=== PATIENT | female | born 1950 | race Caucasian/White ===

== ENCOUNTER → 2016-09-11 | Outpatient (CLI) | payer MEDICARE, OTHER ==
[~2016-09-11] MED LIST: ALPR.25T; ATR20T; CTLP20T; DIOVAN; NF-LEVTH75; NF-VAL40T; TRZ50T
[2016-09-11 11:08] LABS: BASOPHILS % (AUTO) 0 % (0-10); EOSINOPHILS % (AUTO) 0 % (0-10); LYMPHOCYTES # (AUTO) 1.1 X 10^3 (1.0-4.0); LYMPHOCYTES % (AUTO) 16 % (12-44); MEAN CORPUSCULAR HEMOGLOBIN 29 PG (25-34); MEAN CORPUSCULAR HGB CONC 35 G/DL (32-36); MEAN CORPUSCULAR VOLUME 83 FL (80-99); MEAN PLATELET VOLUME 8.9 FL (7.4-10.4); MONOCYTES # (AUTO) 0.5 X 10^3 (0.0-1.0); MONOCYTES % (AUTO) 7 % (0-12); NEUTROPHILS # (AUTO) 5.3 X 10^3 (1.8-7.8); NEUTROPHILS % (AUTO) 78 % (42-75); PLATELET COUNT 296 10^3/uL (130-400); RED BLOOD COUNT 5.03 10^6/uL (4.35-5.85); RED CELL DISTRIBUTION WIDTH 13.8 % (10.0-14.5); WHITE BLOOD COUNT 6.9 10^3/uL (4.3-11.0)
[2016-09-11 11:38] LABS: ALANINE AMINOTRANSFERASE 34 U/L (0-55); ALBUMIN 4.5 G/DL (3.2-4.5); ANION GAP 10 MMOL/L (5-14); ASPARTATE AMINO TRANSFERASE 28 U/L (5-34); BILIRUBIN,TOTAL 0.3 MG/DL (0.1-1.0); BLOOD UREA NITROGEN 5 MG/DL (7-18); BUN/CREATININE RATIO 8; CALCIUM 9.2 MG/DL (8.5-10.1); CARBON DIOXIDE 26 MMOL/L (21-32); CHLORIDE 95 MMOL/L (98-107); CREATININE SERUM 0.65 MG/DL (0.60-1.30); GFR ESTIMATED > 60; GLUCOSE 101 MG/DL (70-105); POTASSIUM 3.5 MMOL/L (3.6-5.0); SODIUM 131 MMOL/L (135-145); TOTAL PROTEIN 7.3 G/DL (6.4-8.2)
[2016-09-11 11:57] LABS: THYROID STIMULATING HORMONE 0.33 UIU/ML (0.35-4.94)
== END ==
LOC: ONC 10:34
PROVIDERS: ATTEND Internal Medicine Hematology & Oncology
DX: C56.2 Malignant neoplasm of left ovary (principal); C43.62 Malignant melanoma of left upper limb, including shoulder; E03.9 Hypothyroidism, unspecified; I10 Essential (primary) hypertension; E78.5 Hyperlipidemia, unspecified; Z79.899 Other long term (current) drug therapy
CPT/HCPCS: 36415; 80053; 84443; 85025; 86304; 99213

== ENCOUNTER → 2017-03-06 | Outpatient (CLI) | payer MEDICARE, OTHER ==
[2017-03-06] VITALS (11 sets, daily range): BP systolic 110–167; BP diastolic 48–76
[~2017-03-06] VITALS: Ht 160 cm; Wt 64.4 kg
[~2017-03-06] MED LIST changes: +HYDROcodone/APAP 5 MG/325 MG (LORTAB) TAB PO PRN; +LIDOCAINE 1% INJ 20 ML (XYLOCAINE) VIAL INJ ONE; +fentaNYL INJECTION 100 MCG/2 ML AMP IVP PRN
[2017-03-06 08:14] LABS: MEAN PLATELET VOLUME 9.6 FL (7.4-10.4); RED BLOOD COUNT 5.02 10^6/uL (4.35-5.85); RED CELL DISTRIBUTION WIDTH 13.3 % (10.0-14.5); WHITE BLOOD COUNT 7.9 10^3/uL (4.3-11.0)
[2017-03-06 08:26] LABS: PROTHROMBIN TIME PATIENT 13.1 SEC (12.2-14.7)
--- NOTE | 2017-03-06 09:57 | Pre-Op Note & Conscious Sedat ---
Pre-Operative Progress Note H&P Reviewed The H&P was reviewed, patient examined and no changes noted. Date H&P Reviewed: Mar 06, 2017 Time H&P Reviewed: 08:30 Pre-Op Diagnosis: left kidney mass Conscious Sedation Pre-Proced Time Reviewed: 08:30 ASA Class: 2 Airway Mallampati Classification: ([place] appropriate class) I. II. III, IV Lungs Heart ASA score ASA 1: a normal healthy patient ASA 2: a patient with a mild systemic disease (mid diabetes, controlled hypertension, obesity ASA 3: a patient with a severe systemic disease that limits activity (angina , COPD, prior Myocardial infarction) ASA 4: a patient with an incapacitating disease that is a constant threat to life (CHF, renal failure) ASA 5: a moribund patient not expected to survive 24 hrs. (ruptured aneurysm) ASA 6: a declared brain patient whose organs are being harvested. For emergent operations, add the letter E after the classification Grade 3 Sedation Plan: Analgesia Note The patient is an appropriate candidate to undergo the planned procedure, sedation, and anesthesia. The patient immediately re-assessed prior to indication. LESLIE REICH MD Mar 06, 2017 09:57
--- NOTE | 2017-03-06 11:31 | Diagnostic Imaging Report ---
EXAMINATION: US-guided core biopsy-kidney. INDICATION: Left adrenal mass. Current history and physical and other medical records are reviewed prior to the procedure. CONSENT: Informed consent was obtained from the patient. The risks, benefits, potential complications and alternatives were reviewed and all questions answered to the patient's satisfaction. The patient's vital signs, cardiac rhythm, and pulse oximetry with observed throughout the procedure by qualified nursing personnel. Sedation/medications: none. FINDINGS: Left renal mass. PROCEDURE: After maximal sterile barrier technique preparation and draping, 1% lidocaine was utilized for local anesthesia. With the patient in prone position, and via posterior subcostal approach, a 17-gauge guide needle is introduced into the upper left renal mass under live ultrasound guidance. After confirming adequate positioning with saved ultrasound images, multiple 18 gauge core biopsy specimens were obtained. Gelfoam injected in the tract as the guide needle was removed The patient tolerated the procedure well with no immediate complications. IMPRESSION: Successful US-guided core biopsy of upper pole left renal mass. Dictated by: Dictated on workstation # [id number]
--- NOTE | 2017-03-06 11:43 | Diagnostic Imaging Report ---
Expiratory view of the chest. Indication upper pole kidney mass biopsy close to the lower lungs. Findings: The lungs demonstrate interstitial prominence which may relate to minimal vascular congestion and background chronic interstitial thickening. The heart size is enlarged. No focal infiltrate. No effusion or pneumothorax The mediastinum and nikia appear unremarkable. Impression: Cardiomegaly with minimal vascular congestion. No pneumothorax. Dictated by: Dictated on workstation # [id number]
== END ==
LOC: RAD 06:56
PROVIDERS: ATTEND Urology
DX: N28.89 Other specified disorders of kidney and ureter (principal); I51.7 Cardiomegaly
CPT/HCPCS: 36415; 71035; 76942; 85027; 85610; 85730

== ENCOUNTER → 2017-08-28 | Outpatient (CLI) | payer MEDICARE, OTHER ==
[~2017-08-28] MED LIST changes: -HYDROcodone/APAP 5 MG/325 MG (LORTAB) TAB PO PRN; -LIDOCAINE 1% INJ 20 ML (XYLOCAINE) VIAL INJ ONE; -fentaNYL INJECTION 100 MCG/2 ML AMP IVP PRN
--- NOTE | 2017-08-28 19:08 | Diagnostic Imaging Report ---
INDICATION: Digital mammogram bilateral screening. This study was compared to the prior exams of 09/06/15, 09/02/14 and 09/15/13. At this time, there are no current complaints. The current study was also evaluated with a Computer Aided Detection (CAD) system. FINDINGS: The fibroglandular tissue in both breasts is heterogeneously dense. This does limit the sensitivity of this exam. Overall, there does not appear to have been any significant change when compared to the prior study. No primary or secondary sign of malignancy is noted. IMPRESSION: There is no radiographic evidence for malignancy. ACR BI-RADS Category 1: Negative. Result letter will be mailed to the patient. Note: At least 10% of breast cancer is not imaged by mammography. Dictated by: Dictated on workstation # [id number]
== END ==
LOC: RAD 12:46
PROVIDERS: ATTEND Internal Medicine Hematology & Oncology
DX: Z12.31 Encounter for screening mammogram for malignant neoplasm of breast (principal)
CPT/HCPCS: 77067

== ENCOUNTER 2017-09-10 10:50 | Outpatient (RCR) | payer MEDICARE, OTHER ==
[2017-09-10 11:00] LABS: BASOPHILS % (AUTO) 0 % (0-10); EOSINOPHILS # (AUTO) 0.1 10^3/uL (0.0-0.3); EOSINOPHILS % (AUTO) 1 % (0-10); HEMATOCRIT 38 % (35-52); HEMOGLOBIN 13.3 G/DL (11.5-16.0); LYMPHOCYTES # (AUTO) 1.2 X 10^3 (1.0-4.0); LYMPHOCYTES % (AUTO) 13 % (12-44); MEAN CORPUSCULAR HEMOGLOBIN 30 PG (25-34); MEAN CORPUSCULAR HGB CONC 35 G/DL (32-36); MEAN CORPUSCULAR VOLUME 86 FL (80-99); MEAN PLATELET VOLUME 8.3 FL (7.4-10.4); MONOCYTES # (AUTO) 0.6 X 10^3 (0.0-1.0); MONOCYTES % (AUTO) 6 % (0-12); NEUTROPHILS # (AUTO) 7.4 X 10^3 (1.8-7.8); NEUTROPHILS % (AUTO) 80 % (42-75); PLATELET COUNT 333 10^3/uL (130-400); RED BLOOD COUNT 4.44 10^6/uL (4.35-5.85); RED CELL DISTRIBUTION WIDTH 13.3 % (10.0-14.5); WHITE BLOOD COUNT 9.3 10^3/uL (4.3-11.0)
[2017-09-10 11:21] LABS: ALANINE AMINOTRANSFERASE 23 U/L (0-55); ALBUMIN 4.7 GM/DL (3.2-4.5); ALKALINE PHOSPHATASE 104 U/L (40-136); BILIRUBIN,TOTAL 0.4 MG/DL (0.1-1.0); BUN/CREATININE RATIO 12; CALCIUM 9.2 MG/DL (8.5-10.1); CARBON DIOXIDE 29 MMOL/L (21-32); CHLORIDE 90 MMOL/L (98-107); CREATININE SERUM 0.76 MG/DL (0.60-1.30); GFR ESTIMATED > 60; GLUCOSE 89 MG/DL (70-105); POTASSIUM 3.8 MMOL/L (3.6-5.0); SODIUM 126 MMOL/L (135-145); TOTAL PROTEIN 7.4 GM/DL (6.4-8.2)
== END 2017-12-09 | disposition home or self-care (01) ==
LOC: ONC 10:50
PROVIDERS: ATTEND Internal Medicine Hematology & Oncology
DX: Z08 Encounter for follow-up examination after completed treatment for malignant neoplasm (principal); Z85.43 Personal history of malignant neoplasm of ovary; Z85.820 Personal history of malignant melanoma of skin; Z85.528 Personal history of other malignant neoplasm of kidney; I10 Essential (primary) hypertension; E03.9 Hypothyroidism, unspecified; E78.00 Pure hypercholesterolemia, unspecified; E87.1 Hypo-osmolality and hyponatremia; Z79.899 Other long term (current) drug therapy; Z90.5 Acquired absence of kidney
CPT/HCPCS: 36415; 80053; 85025; 86304; 99213

== ENCOUNTER → 2018-09-23 | Outpatient (CLI) | payer MEDICARE, OTHER | LOC: ONC 10:38 | PROVIDERS: ATTEND Internal Medicine Hematology & Oncology | DX: Z08 Encounter for follow-up examination after completed treatment for malignant neoplasm (principal); Z85.43 Personal history of malignant neoplasm of ovary; Z85.820 Personal history of malignant melanoma of skin; Z85.528 Personal history of other malignant neoplasm of kidney; I10 Essential (primary) hypertension; E03.9 Hypothyroidism, unspecified; E78.00 Pure hypercholesterolemia, unspecified; E87.1 Hypo-osmolality and hyponatremia; Z79.899 Other long term (current) drug therapy; Z90.5 Acquired absence of kidney | CPT/HCPCS: 99213 ==

== ENCOUNTER 2018-10-03 08:30 | Outpatient (CLI) | payer MEDICARE, OTHER ==
[~2018-10-03] VITALS: Ht 160 cm; Wt 72.6 kg
[~2018-10-03 08:30] MED LIST changes: +ALPR0.254 PO; +CARB200T PO; +CITA10TA7 PO; +LEVO88TA54 PO; +ROSU20TA31 PO; +TRAZ-190 PO; +VENL150C PO; +VERA120C9 PO
[2018-10-03] MEDS ORDERED: HYDR25TA4 PO (08:44)
[2018-10-03] MEDS ORDERED: ALPR2TAB PO (08:44)
== END 2018-10-03 09:20 | disposition home or self-care (01) ==
LOC: PREOP 08:30
PROVIDERS: ATTEND Specialist
DX: Z01.818 Encounter for other preprocedural examination (principal)

== ENCOUNTER 2018-10-04 08:50 | Day surgery (SDC) | payer MEDICARE, OTHER ==
[~2018-10-04] VITALS: Ht 160 cm; Wt 72.6 kg
[~2018-10-04 08:50] MED LIST changes: +ALPR2TAB PO; +HYDR25TA4 PO
[2018-10-04 09:05] VITALS: BP 176/71
[2018-10-04] MEDS: TETRACAINE 0.5% OPHTH SOLN 4 ML BTL (SINGLE DOSE ONLY) OU PRN ×4 (09:08→09:26)
[2018-10-04] MEDS: PHENYLEPHRINE 10% OPHTH (NEO-SYN) 5 ML BTL OU PRN ×3 (09:14→09:26)
[2018-10-04] MEDS: TROPICAMIDE 1% OPH SOLN (MYDRIACYL) 15 ML BTL OU PRN ×3 (09:14→09:26)
--- NOTE | 2018-10-04 09:17 | Ophthalmologist Pre-Op Note ---
Pre-Operative Progress Note H&P Reviewed The H&P was reviewed, patient examined and no changes noted. Date H&P Reviewed: Oct 04, 2018 Time H&P Reviewed: 09:17 Pre-Op Dx Secondary Cataract, Bilateral Eyes KO WEBER MD Oct 04, 2018 09:17
[2018-10-04 09:55] VITALS: BP 176/71
--- NOTE | 2018-10-04 10:13 | Ophthalmology Operative Report ---
YAG Capsulotomy PREOPERATIVE DIAGNOSIS: Secondary Cataract Bilateral POSTOPERATIVE DIAGNOSIS: Secondary Cataract Bilateral PROCEDURE: YAG Capsulotomy, Bilateral SURGEON: Darell Weber ANESTHESIA: Topical anesthesia COMPLICATIONS: None ESTIMATED BLOOD LOSS: Minimal DESCRIPTION OF PROCEDURE: After proper informed consent was obtained, the patient's, a 68 female , received one drop of Tropicamide and one drop of Tetracaine in each eye. The patient was then placed at the YAG laser and using a power of [ 3.8] millijoules and bursts [ 17] right eye and [18 ] left eye were used to fashion a central capsulotomy. The patient tolerated the procedure well without complications and the patient's pressure was [13/12] shortly after the laser. DARELL WEBER MD Oct 04, 2018 10:13
--- OUTSIDE RECORDS SUMMARY | 2018-10-04 10:31 | XMS REPORT | Clinical Summary ---
Author Author [facility] Organization [facility] Address Unknown Phone Unavailable Care Team Providers Care Wire Wheeler Name Role Phone Amber Ramon MD PCP Source Comments Some departments are not documenting in the electronic medical record. If you do not see the information that you expected, contact Release of Information in the Health Information Management department at [phone] for further assistance in locating additional records.[facility] Allergies No Known Allergies Medications End Date Status Medication Sig Dispensed Refills Start Date Active amLODIPine (NORVASC) 5 mg Take 10 mg by 0 tablet mouth daily. 7 Active atorvastatin (LIPITOR) 20 Take 20 mg by 0 01/31/ mg tablet mouth daily. 7 Active traZODone (DESYREL) 100 Take 100 mg 0 mg tablet by mouth at 7 bedtime daily. Active valsartan-hydrochlorothia Take 1 tablet 0 zide (DIOVAN HCT) by mouth 7 160-12.5 mg tablet daily. Active ALPRAZolam XR(+) (XANAX TAKE 1 TABLET 0 XR) 2 mg tablet BY MOUTH ONCE 7 DAILY Active carBAMazepine (TEGRETOL) Take 200 mg 0 200 mg tablet by mouth 7 three times daily. Active citalopram (CELEXA) 10 mg Take 10 mg by 0 tablet mouth twice 7 daily. Morning and lunch Active levothyroxine (SYNTHROID) Take 88 mcg 0 88 mcg tablet by mouth daily 30 minutes before breakfast. Active ALPRAZolam (XANAX) 0.25 Take by 0 mg tablet mouth three times daily. 2 tabs in the morning, half tab in the afternoon, and half tab in the evening Active desvenlafaxine (+) Take 100 mg 0 (PRISTIQ) 100 mg tablet by mouth daily. Active oxyCODONE (ROXICODONE, Take 1 tablet 30 tablet 0 OXY-IR) 5 mg tablet by mouth 7 every 3 hours as needed Active polyethylene glycol 3350 Take 1 packet 12 each 4 (MIRALAX) 17 g by mouth 7 packetIndications: twice daily. constipation Indications: CONSTIPATION Active senna/docusate Take 1 tablet 15 tablet 0 (SENOKOT-S) 8.6/50 mg by mouth 7 tabletIndications: twice daily. constipation Indications: CONSTIPATION Active acetaminophen (TYLENOL) Take 2 0 325 mg tablet tablets by 7 mouth every 6 hours as needed for Pain. Max of 4,000 mg of acetaminophen in 24 hours. Active Problems Problem Noted Date Left renal mass 05/02/2017 Renal mass 04/02/2017 Overview: Added automatically from request for surgery [id number] Family History Medical History Relation Name Comments Cancer-Prostate Father Hypertension Father Relation Name Status Comments Father Social History Date Tobacco Use Types Packs/Day Years Used Current Every Day Smoker Cigarettes 1 50 Smokeless Tobacco: Never Used Tobacco Cessation: Ready to Quit: Yes Alcohol Use Drinks/Week oz/Week Comments No Sex Assigned at Date Recorded Not on file Industry Job Start Date Occupation Not on file Not on file Not on file Travel End Travel History Travel Start No recent travel history available. Last Filed Vital Signs Time Taken Vital Sign Reading 12/03/2017 11:27 AM CDT Blood Pressure 185/88 12/03/2017 11:27 AM CDT Pulse 86 12/03/2017 11:27 AM CDT Temperature 36.4 C (97.5 F) 12/03/2017 11:27 AM CDT Respiratory Rate 16 12/03/2017 11:27 AM CDT Oxygen Saturation 99% - Inhaled Oxygen - Concentration 12/03/2017 11:27 AM CDT Weight 72.3 kg (159 lb 6.4 oz) 12/03/2017 11:27 AM CDT Height 157.5 cm (5' 2") 12/03/2017 11:27 AM CDT Body Mass Index 29.15 Plan of Treatment Health Maintenance Due Date Last Done Comments HEPATITIS C SCREENING 1948 PHYSICAL (COMPREHENSIVE) 1955 EXAM DTAP/TDAP VACCINES (1 - 1966 Tdap) BREAST CANCER SCREENING 1988 COLORECTAL CANCER 1998 SCREENING SHINGLES RECOMBINANT 1998 VACCINE (1 of 2) OSTEOPOROSIS 2013 SCREENING/MONITORING PNEUMONIA (PCV13/PPSV23) 2013 VACCINES (1 of 2 - PCV13) INFLUENZA VACCINE 01/16/2019 Results Not on filefrom Last 3 Months Insurance Type Payer Benefit Subscriber ID Effective Phone Address Plan / Dates Group Medicare MEDICARE MEDICARE xxxxxxxxxx 2013- PART A AND Present B HMO xxxxxxxxx 2017 FOR LIFE -Present Advance Directives Patient has advance care planning documents, and code status on file. For more information, please contact: [facility] [address] [place] [address] Date Inactivated Comments Code Status Date Activated 05/03/2017 5:48 PM Full Code 05/02/2017 8:16 PM Provider has discussed Code Status No, discussion not w/Patient or Family? necessary based on Dx
--- OUTSIDE RECORDS SUMMARY | 2018-10-04 10:33 | XMS REPORT | Continuity of Care Document ---
Author Organization Unknown Address Unknown Allergies Active Description Code Type Severity Reaction Onset Reported/Identified Relationship to Patient Clinical Status Yes NO KNOWN DRUG ALLERGIES UNKNOWN NO KNOWN DRUG ALLERG Yes No Known Drug Allergies [id number] Drug Allergy Mild N/A 05/07/2008 Medications Medication Packaging Start Date Stop Date Route Dosage Sig NORMAL SALINE 1000CC IV BAG INJ 0.9 % (NS 1000CC IV BAG) ml 11/02/2016 11/02/2016 ONCE&1952 FENTANYL INJ 100 MCG/2CC VIAL MCG 11/02/2016 11/02/2016 ONCE&1999 MIDAZOLAM INJ 5 MG/5CC (VERSED) MG 11/02/2016 11/02/2016 ONCE&2000 Problems Date Dx Coded Attending Type Code Diagnosis Diagnosed By 09/05/2009 Ot 236.2 09/05/2009 Ot 244.9 09/05/2009 Ot 272.0 09/05/2009 Ot 401.9 09/05/2009 Ot V10.82 09/05/2009 Ot V45.77 09/05/2009 Ot V58.69 03/01/2010 Ot 236.2 03/01/2010 Ot 244.9 03/01/2010 Ot 272.0 03/01/2010 Ot 401.9 03/01/2010 Ot V10.82 03/01/2010 Ot V45.77 03/01/2010 Ot V58.69 03/01/2010 Ot V67.09 04/29/2014 Ot 172.9 04/29/2014 Ot 172.9 04/29/2014 Ot 348.8 04/29/2014 Ot 625.8 04/29/2014 Ot 625.8 04/29/2014 Ot V72.81 04/29/2014 Ot V72.83 04/29/2014 Ot V74.8 04/29/2014 Ot 172.9 04/29/2014 Ot 172.9 04/29/2014 Ot 172.9 04/29/2014 Ot 794.09 04/29/2014 Ot 236.2 04/29/2014 Ot 244.9 04/29/2014 Ot 272.0 04/29/2014 Ot 401.9 04/29/2014 Ot V10.82 04/29/2014 Ot V45.77 04/29/2014 Ot V58.69 04/29/2014 Ot V67.09 04/29/2014 Ot 236.2 04/29/2014 Ot 244.9 04/29/2014 Ot 272.0 04/29/2014 Ot 401.9 04/29/2014 Ot V10.82 04/29/2014 Ot V45.77 04/29/2014 Ot V58.69 04/29/2014 Ot V67.09 04/29/2014 Ot 244.9 04/29/2014 Ot 272.0 04/29/2014 Ot 401.9 04/29/2014 Ot V10.43 04/29/2014 Ot V10.82 04/29/2014 Ot V45.77 04/29/2014 Ot V58.69 04/29/2014 Ot V67.09 04/29/2014 Ot 244.9 04/29/2014 Ot 272.0 04/29/2014 Ot 401.9 04/29/2014 Ot V10.43 04/29/2014 Ot V10.82 04/29/2014 Ot V45.77 04/29/2014 Ot V58.69 04/29/2014 Ot V67.09 04/29/2014 Ot V76.12 04/29/2014 Ot 244.9 04/29/2014 Ot 272.0 04/29/2014 Ot 276.8 04/29/2014 Ot 300.00 04/29/2014 Ot 401.9 04/29/2014 Ot V10.43 04/29/2014 Ot V10.82 04/29/2014 Ot V45.77 04/29/2014 Ot V58.69 04/29/2014 Ot V67.09 04/29/2014 Ot V76.12 04/29/2014 Ot 183.0 04/29/2014 Ot 244.9 04/29/2014 Ot 272.0 04/29/2014 Ot 401.9 04/29/2014 Ot V10.43 04/29/2014 Ot V10.82 04/29/2014 Ot V45.77 04/29/2014 Ot V58.69 04/29/2014 Ot V67.09 04/29/2014 YULISA CARTER, WILKINS-JOAQUIN Ot 244.9 04/29/2014 YULISA CARTER, WILKINS-JOAQUIN Ot 272.0 04/29/2014 YULISA CARTER, WILKINS-JOAQUIN Ot 401.9 04/29/2014 YULISA CARTER, WILKINS-JOAQUIN Ot V10.43 04/29/2014 YULISA CARTER, WILKINS-JOAQUIN Ot V10.82 04/29/2014 YULISA CARTER, WILKINS-JOAQUIN Ot V45.77 04/29/2014 YULISA CARTER, WILKINS-JOAQUIN Ot V58.69 04/29/2014 YULISA CARTER, WILKINS-JOAQUIN Ot V67.09 04/29/2014 YULISA CARTER, WILKINS-JOAQUIN Ot V76.12 04/29/2014 YULISA CARTER, WILKINS-JOAQUIN Ot 244.9 04/29/2014 YULISA CARTER, WILKINS-JOAQUIN Ot 272.0 04/29/2014 YULISA CARTER, WILKINS-JOAQUIN Ot 401.9 04/29/2014 YULISA CARTER, WILKINS-JOAQUIN Ot V10.43 04/29/2014 YULISA CARTER, WILKINS-JOAQUIN Ot V10.82 04/29/2014 YULISA CARTER, WILKINS-JOAQUIN Ot V45.77 04/29/2014 YULISA CARTER, WILKINS-JOAQUIN Ot V58.69 04/29/2014 YULISA CARTER, WILKINS-JOAQUIN Ot V67.09 04/29/2014 YULISA CARTER, WILKINS-JOAQUIN Ot 244.9 04/29/2014 YULISA CARTER, CLAUDETTE-JOAQUIN Ot 272.0 04/29/2014 YULISA CARTER, WILKINS-JOAQUIN Ot 401.9 04/29/2014 YULISA CARTER, WILKINS-JOAQUIN Ot V10.43 04/29/2014 YULISA CARTER, WILKINS-JOAQUIN Ot V10.82 04/29/2014 YULISA CARTER, WILKINS-JOAQUIN Ot V58.69 04/29/2014 YULISA CARTER, WILKINS-JOAQUIN Ot V67.09 04/29/2014 YULISA CARTER, WILKINS-JOAQUIN Ot V88.01 06/26/2014 Ot 172.9 06/26/2014 Ot 172.9 06/26/2014 Ot 172.9 06/26/2014 Ot 794.09 06/26/2014 Ot 236.2 06/26/2014 Ot 244.9 06/26/2014 Ot 272.0 06/26/2014 Ot 401.9 06/26/2014 Ot V10.82 06/26/2014 Ot V45.77 06/26/2014 Ot V58.69 06/26/2014 Ot V67.09 06/26/2014 Ot 236.2 06/26/2014 Ot 244.9 06/26/2014 Ot 272.0 06/26/2014 Ot 401.9 06/26/2014 Ot V10.82 06/26/2014 Ot V45.77 06/26/2014 Ot V58.69 06/26/2014 Ot V67.09 06/26/2014 Ot 244.9 06/26/2014 Ot 272.0 06/26/2014 Ot 401.9 06/26/2014 Ot V10.43 06/26/2014 Ot V10.82 06/26/2014 Ot V45.77 06/26/2014 Ot V58.69 06/26/2014 Ot V67.09 06/26/2014 Ot 244.9 06/26/2014 Ot 272.0 06/26/2014 Ot 401.9 06/26/2014 Ot V10.43 06/26/2014 Ot V10.82 06/26/2014 Ot V45.77 06/26/2014 Ot V58.69 06/26/2014 Ot V67.09 06/26/2014 Ot V76.12 06/26/2014 Ot 244.9 06/26/2014 Ot 272.0 06/26/2014 Ot 276.8 06/26/2014 Ot 300.00 06/26/2014 Ot 401.9 06/26/2014 Ot V10.43 06/26/2014 Ot V10.82 06/26/2014 Ot V45.77 06/26/2014 Ot V58.69 06/26/2014 Ot V67.09 06/26/2014 Ot V76.12 06/26/2014 Ot 183.0 06/26/2014 Ot 244.9 06/26/2014 Ot 272.0 06/26/2014 Ot 401.9 06/26/2014 Ot V10.43 06/26/2014 Ot V10.82 06/26/2014 Ot V45.77 06/26/2014 Ot V58.69 06/26/2014 Ot V67.09 06/26/2014 YULISA CARTER, SUE Ot 244.9 06/26/2014 YULISA CARTER, SUE Ot 272.0 06/26/2014 YULISA CARTER, WILKINS-JOAQUIN Ot 401.9 06/26/2014 YULISA CARTER, WILKINS-JOAQUIN Ot V10.43 06/26/2014 YULISA CARTER, WILKINS-JOAQUIN Ot V10.82 06/26/2014 YULISA CARTER, WILKINS-JOAQUIN Ot V45.77 06/26/2014 YULISA CARTRE, WILKINS-JOAQUIN Ot V58.69 06/26/2014 YULISA CARTER, WILKINS-JOAQUIN Ot V67.09 06/26/2014 YULISA CARTER, WILKINS-JOAQUIN Ot V76.12 06/26/2014 YULISA CARTER, WILKINS-JOAQUIN Ot 244.9 06/26/2014 YULISA CARTER, WILKINS-JOAQUIN Ot 272.0 06/26/2014 YULISA CARTER, WILKINS-JOAQUIN Ot 401.9 06/26/2014 YULISA CARTER, WILKINS-JOAQUIN Ot V10.43 06/26/2014 YULISA CARTER, WILKINS-JOAQUIN Ot V10.82 06/26/2014 YULISA CARTER, WILKINS-JOAQUIN Ot V45.77 06/26/2014 YULISA CARTER, WLIKINS-JOAQUIN Ot V58.69 06/26/2014 YULISA CARTER, WILKINS-JOAQUIN Ot V67.09 06/26/2014 YULISA CARTER, WILKINS-JOAQUIN Ot 244.9 06/26/2014 YULISA CARTER, WILKINS-JOAQUIN Ot 272.0 06/26/2014 YULISA CARTER, WILKINS-JOAQUIN Ot 401.9 06/26/2014 YULISA CARTER, WILKINS-JOAQUIN Ot V10.43 06/26/2014 YULISA CARTER, WILKINS-JOAQUIN Ot V10.82 06/26/2014 YULISA CARTER, WILKINS-JOAQUIN Ot V58.69 06/26/2014 YULISA CARTER, WILKINS-JOAQUIN Ot V67.09 06/26/2014 YULISA CARTER, WILKINS-JOAQUIN Ot V88.01 09/25/2014 Ot V76.12 10/19/2014 YULISA CARTER, WILKINS-JOAQUIN Ot 244.9 10/19/2014 YULISA CARTER, WILKINS-JOAQUIN Ot 272.0 10/19/2014 YULISA CARTER, WILKINS-JOAQUIN Ot 401.9 10/19/2014 YULISA CARTER, WILKINS-JOAQUIN Ot V10.43 10/19/2014 YULISA CARTER, WILKINS-JOAQUIN Ot V10.82 10/19/2014 YULISA CARTER, WILKINS-JOAQUIN Ot V58.69 10/19/2014 YULISA CARTER, WILKINS-JOAQUIN Ot V67.09 10/19/2014 YULISA CARTER, SUE Ot V88.01 11/06/2014 YULISA CARTER, SUE Ot 244.9 11/06/2014 YULISA CARTER, SUE Ot 272.0 11/06/2014 YULISA CARTER, SUE Ot 401.9 11/06/2014 YULISA CARTER, SUE Ot V10.43 11/06/2014 YULISA CARTER, SUE Ot V10.82 11/06/2014 YULISA CARTER, SUE Ot V58.69 11/06/2014 YULISA CARTER, SUE Ot V67.09 11/06/2014 YULISA CARTER, SUE Ot V88.01 02/19/2015 Ot 172.9 02/19/2015 Ot 794.09 02/19/2015 Ot 236.2 02/19/2015 Ot 244.9 02/19/2015 Ot 272.0 02/19/2015 Ot 401.9 02/19/2015 Ot V10.82 02/19/2015 Ot V45.77 02/19/2015 Ot V58.69 02/19/2015 Ot V67.09 02/19/2015 Ot 236.2 02/19/2015 Ot 244.9 02/19/2015 Ot 272.0 02/19/2015 Ot 401.9 02/19/2015 Ot V10.82 02/19/2015 Ot V45.77 02/19/2015 Ot V58.69 02/19/2015 Ot V67.09 02/19/2015 Ot 244.9 02/19/2015 Ot 272.0 02/19/2015 Ot 401.9 02/19/2015 Ot V10.43 02/19/2015 Ot V10.82 02/19/2015 Ot V45.77 02/19/2015 Ot V58.69 02/19/2015 Ot V67.09 02/19/2015 Ot 244.9 02/19/2015 Ot 272.0 02/19/2015 Ot 401.9 02/19/2015 Ot V10.43 02/19/2015 Ot V10.82 02/19/2015 Ot V45.77 02/19/2015 Ot V58.69 02/19/2015 Ot V67.09 02/19/2015 Ot V76.12 02/19/2015 Ot 244.9 02/19/2015 Ot 272.0 02/19/2015 Ot 276.8 02/19/2015 Ot 300.00 02/19/2015 Ot 401.9 02/19/2015 Ot V10.43 02/19/2015 Ot V10.82 02/19/2015 Ot V45.77 02/19/2015 Ot V58.69 02/19/2015 Ot V67.09 02/19/2015 Ot V76.12 02/19/2015 Ot 183.0 02/19/2015 Ot 244.9 02/19/2015 Ot 272.0 02/19/2015 Ot 401.9 02/19/2015 Ot V10.43 02/19/2015 Ot V10.82 02/19/2015 Ot V45.77 02/19/2015 Ot V58.69 02/19/2015 Ot V67.09 02/19/2015 YULISA CARTER, WILKINS-JOAQUIN Ot 244.9 02/19/2015 YULISA CARTER, WILKINS-JOAQUIN Ot 272.0 02/19/2015 YULISA CARTRE, WILKINS-JOAQUIN Ot 401.9 02/19/2015 YULISA CARTER, WILKINS-JOAQUIN Ot V10.43 02/19/2015 YULISA CARTER, WILKINS-JOAQUIN Ot V10.82 02/19/2015 YULISA CARTER, WILKINS-JOAQUIN Ot V45.77 02/19/2015 YULSIA CARTER, WILKINS-JOAQUIN Ot V58.69 02/19/2015 YULISA CARTER, WILKINS-JOAQUIN Ot V67.09 02/19/2015 YULISA CARTER, WILKINS-JOAQUIN Ot V76.12 02/19/2015 YULISA CARTER, WILKINS-JOAQUIN Ot 244.9 02/19/2015 YULISA CARTER, WILKINS-JOAQUIN Ot 272.0 02/19/2015 YULISA CARTER, WILKINS-JOAQUIN Ot 401.9 02/19/2015 YULISA CARTER, WILKINS-JOAQUIN Ot V10.43 02/19/2015 YULISA CARTER, WILKINS-JOAQUIN Ot V10.82 02/19/2015 YULISA CARTER, WILKINS-JOAQUIN Ot V45.77 02/19/2015 YULISA CARTER, WILKINS-JOAQUIN Ot V58.69 02/19/2015 YULISA CARTER, WILKINS-JOAQUIN Ot V67.09 02/19/2015 YULISA CARTER, WILKINS-JOAQUIN Ot 244.9 02/19/2015 YULISA CARTER, WILKINS-JOAQUIN Ot 272.0 02/19/2015 YULISA CARTER, WILKINS-JOAQUIN Ot 401.9 02/19/2015 YULISA CARTER, WILKINS-JOAQUIN Ot V10.43 02/19/2015 YULISA CARTER, WILKINS-JOAQUIN Ot V10.82 02/19/2015 YULISA CARTER, WILKINS-JOAQUIN Ot V58.69 02/19/2015 YULISA CARTER, WILKINS-JOAQUIN Ot V67.09 02/19/2015 YULISA CARTER, WILKINS-JOAQUIN Ot V88.01 02/19/2015 Ot V76.12 02/19/2015 YULISA CARTER, WILKINS-JOAQUIN Ot 244.9 02/19/2015 YULISA CARTER, WILKINS-JOAQUIN Ot 272.0 02/19/2015 YULISA CARTER, WILKINS-JOAQUIN Ot 401.9 02/19/2015 YULISA CARTER, WILKINS-JOAQUIN Ot V10.43 02/19/2015 YULISA CARTER, WILKINS-JOAQUIN Ot V10.82 02/19/2015 YULISA CARTER, WILKINS-JOAQUIN Ot V58.69 02/19/2015 YULISA CARTER, WILKINS-JOAQUIN Ot V67.09 02/19/2015 YULISA CARTER, WILKINS-JOAQUIN Ot V88.01 09/06/2015 YULISA CARTER, WILKINS-JOAQUIN Ot 244.9 09/06/2015 YULISA CARTER, WILKINS-JOAQUIN Ot 272.0 09/06/2015 YULISA CARTER, WILKINS-JOAQUIN Ot 401.9 09/06/2015 YULISA CARTER, WILKINS-JOAQUIN Ot V10.43 09/06/2015 YULISA CARTER, WILKINS-JOAQUIN Ot V10.82 09/06/2015 YULISA CARTER, WILKINS-JOAQUIN Ot V45.77 09/06/2015 YULISA CARTER, WILKINS-JOAQUIN Ot V58.69 09/06/2015 YULISA CARTER, WILKINS-JOAQUIN Ot V67.09 09/06/2015 YULISA CARTER, WILKINS-JOAQUIN Ot V76.12 09/06/2015 YULISA CARTER, WILKINS-JOAQUIN Ot 244.9 09/06/2015 YULISA CARTER, WILKINS-JOAQUIN Ot 272.0 09/06/2015 YULISA CARTER, WILKINS-JOAQUIN Ot 401.9 09/06/2015 YULISA CARTER, WILKINS-JOAQUIN Ot V10.43 09/06/2015 YULISA CARTER, WILKINS-JOAQUIN Ot V10.82 09/06/2015 YULISA CARTER, WILKINS-JOAQUIN Ot V45.77 09/06/2015 YULISA CARTER, WILKINS-JOAQUIN Ot V58.69 09/06/2015 YULISA CARTER, WILKINS-JOAQUIN Ot V67.09 09/06/2015 YULISA CARTER, WILKINS-JOAQUIN Ot 244.9 09/06/2015 YULISA CARTER, WILKINS-JOAQUNI Ot 272.0 09/06/2015 YULISA CARTER, WILKINS-JOAQUIN Ot 401.9 09/06/2015 YULISA CARTER, WILKINS-JOAQUIN Ot V10.43 09/06/2015 YULISA CARTER, WILKINS-JOAQUIN Ot V10.82 09/06/2015 YULISA CARTER, WILKINS-JOAQUIN Ot V58.69 09/06/2015 YULISA CARTER, WILKINS-JOAQUIN Ot V67.09 09/06/2015 YULISA CARTER, WILKINS-JOAQUIN Ot V88.01 09/06/2015 Ot V76.12 09/06/2015 YULISA CARTER, WILKINS-JOAQUIN Ot 244.9 09/06/2015 YULISA CARTER, WILKINS-JOAQUIN Ot 272.0 09/06/2015 YULISA CARTER, WILKINS-JOAQUIN Ot 401.9 09/06/2015 YULISA CARTER, WILKINS-JOAQUIN Ot V10.43 09/06/2015 YULISA CARTER, WILKINS-JOAQUIN Ot V10.82 09/06/2015 YULISA CARTER, WILKINS-JOAQUIN Ot V58.69 09/06/2015 YULISA CARTER, WILKINS-JOAQUIN Ot V67.09 09/06/2015 YULISA CARTER, CLAUDETTE-JOAQUIN Ot V88.01 09/14/2015 YULISA CARTER, SUE Ot E03.9 09/14/2015 YULISA CARTER, SUE Ot E78.0 09/14/2015 YULISA CARTER, SUE Ot I10 09/14/2015 YULISA CARTER, SUE Ot Z08 09/14/2015 YULISA ACRTER, SUE Ot Z79.899 09/14/2015 YUILSA CARTER, SUE Ot Z85.43 09/14/2015 YULISA CARTER, SUE Ot Z85.820 09/14/2015 YULISA CARTER, SUE Ot Z90.710 09/28/2015 YULISA CARTER, SUE Ot Z12.31 10/06/2015 YULISA CARTER, SUE Ot E03.9 HYPOTHYROIDISM, UNSPECIFIED 10/06/2015 YULISA CARTER, SUE Ot E78.0 PURE HYPERCHOLESTEROLEMIA 10/06/2015 YULISA CARTER, SUE Ot I10 ESSENTIAL (PRIMARY) HYPERTENSION 10/06/2015 SUE MÁRQUEZ MD Ot Z08 ENCNTR FOR FOLLOW-UP EXAM AFTER TRTMT FO 10/06/2015 SUE MÁRQUEZ MD Ot Z79.899 OTHER MCC (CURRENT) DRUG THERAPY 10/06/2015 SUE MÁRQUEZ MD Ot Z85.43 PERSONAL HISTORY OF MALIGNANT NEOPLASM O 10/06/2015 SUE MÁRQUEZ MD Ot Z85.820 PERSONAL HISTORY OF MALIGNANT MELANOMA O 10/06/2015 SUE MÁRQUEZ MD Ot Z90.710 ACQUIRED ABSENCE OF BOTH CERVIX AND UTER 10/26/2015 SUE MÁRQUEZ MD Ot E03.9 HYPOTHYROIDISM, UNSPECIFIED 10/26/2015 SUE MÁRQUEZ MD Ot E78.0 PURE HYPERCHOLESTEROLEMIA 10/26/2015 SUE MÁRQUEZ MD Ot I10 ESSENTIAL (PRIMARY) HYPERTENSION 10/26/2015 SUE MÁRQUEZ MD Ot Z08 ENCNTR FOR FOLLOW-UP EXAM AFTER TRTMT FO 10/26/2015 SUE MÁRQUEZ MD Ot 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 10/26/2015 SUE MÁRQUEZ MD Ot Z85.43 PERSONAL HISTORY OF MALIGNANT NEOPLASM O 10/26/2015 SUE MÁRQUEZ MD Ot Z85.820 PERSONAL HISTORY OF MALIGNANT MELANOMA O 10/26/2015 SUE MÁRQUEZ MD Ot Z90.710 ACQUIRED ABSENCE OF BOTH CERVIX AND UTER 03/27/2016 Ot 244.9 HYPOTHYROIDISM NOS 03/27/2016 Ot 272.0 PURE HYPERCHOLESTEROLEM 03/27/2016 Ot 401.9 HYPERTENSION NOS 03/27/2016 Ot V10.43 HX OF OVARIAN MALIGNANCY 03/27/2016 Ot V10.82 HX-MALIG SKIN MELANOMA 03/27/2016 Ot V45.77 ACQRD ABSENCE OF GENITAL ORGANS 03/27/2016 Ot V58.69 OTH MED,LT, CURRENT USE 03/27/2016 Ot V67.09 SURGERY FOLLOW-UP, OTHER SURGERY 03/27/2016 Ot 244.9 HYPOTHYROIDISM NOS 03/27/2016 Ot 272.0 PURE HYPERCHOLESTEROLEM 03/27/2016 Ot 401.9 HYPERTENSION NOS 03/27/2016 Ot V10.43 HX OF OVARIAN MALIGNANCY 03/27/2016 Ot V10.82 HX-MALIG SKIN MELANOMA 03/27/2016 Ot V45.77 ACQRD ABSENCE OF GENITAL ORGANS 03/27/2016 Ot V58.69 OTH MED,LT, CURRENT USE 03/27/2016 Ot V67.09 SURGERY FOLLOW-UP, OTHER SURGERY 03/27/2016 Ot V76.12 OTH SCREEN MAMMO-MALIGN NEOPLASM OF ABY 03/27/2016 Ot 244.9 HYPOTHYROIDISM NOS 03/27/2016 Ot 272.0 PURE HYPERCHOLESTEROLEM 03/27/2016 Ot 276.8 HYPOPOTASSEMIA 03/27/2016 Ot 300.00 ANXIETY STATE NOS 03/27/2016 Ot 401.9 HYPERTENSION NOS 03/27/2016 Ot V10.43 HX OF OVARIAN MALIGNANCY 03/27/2016 Ot V10.82 HX-MALIG SKIN MELANOMA 03/27/2016 Ot V45.77 ACQRD ABSENCE OF GENITAL ORGANS 03/27/2016 Ot V58.69 OTH MED,LT, CURRENT USE 03/27/2016 Ot V67.09 SURGERY FOLLOW-UP, OTHER SURGERY 03/27/2016 Ot V76.12 OTH SCREEN MAMMO-MALIGN NEOPLASM OF ABY 03/27/2016 Ot 183.0 MALIGN NEOPL OVARY 03/27/2016 Ot 244.9 HYPOTHYROIDISM NOS 03/27/2016 Ot 272.0 PURE HYPERCHOLESTEROLEM 03/27/2016 Ot 401.9 HYPERTENSION NOS 03/27/2016 Ot V10.43 HX OF OVARIAN MALIGNANCY 03/27/2016 Ot V10.82 HX-MALIG SKIN MELANOMA 03/27/2016 Ot V45.77 ACQRD ABSENCE OF GENITAL ORGANS 03/27/2016 Ot V58.69 OTH MED,LT, CURRENT USE 03/27/2016 Ot V67.09 SURGERY FOLLOW-UP, OTHER SURGERY 03/27/2016 SUE MÁRQUEZ MD Ot 244.9 HYPOTHYROIDISM NOS 03/27/2016 SUE MÁRQUEZ MD Ot 272.0 PURE HYPERCHOLESTEROLEM 03/27/2016 SUE MÁRQUEZ MD Ot 401.9 HYPERTENSION NOS 03/27/2016 SUE MÁRQUEZ MD Ot V10.43 HX OF OVARIAN MALIGNANCY 03/27/2016 SUE MÁRQUEZ MD Ot V10.82 HX-MALIG SKIN MELANOMA 03/27/2016 SUE MÁRQUEZ MD Ot V45.77 ACQRD ABSENCE OF GENITAL ORGANS 03/27/2016 SUE MÁRQUEZ MD Ot V58.69 OTH MED,LT,CURRENT USE 03/27/2016 SUE MÁRQUEZ MD Ot V67.09 SURGERY FOLLOW-UP, OTHER SURGERY 03/27/2016 SUE MÁRQUEZ MD Ot V76.12 OTH SCREEN MAMMO-MALIGN NEOPLASM OF ABY 03/27/2016 SUE MÁRQUEZ MD Ot 244.9 HYPOTHYROIDISM NOS 03/27/2016 YULISA CARTER, SUE Ot 272.0 PURE HYPERCHOLESTEROLEM 03/27/2016 YULISA CARTER, SUE Ot 401.9 HYPERTENSION NOS 03/27/2016 YULISA CARTER, SUE Ot V10.43 HX OF OVARIAN MALIGNANCY 03/27/2016 SUE MÁRQUEZ MD Ot V10.82 HX-MALIG SKIN MELANOMA 03/27/2016 SUE MÁRQUEZ MD Ot V45.77 ACQRD ABSENCE OF GENITAL ORGANS 03/27/2016 SUE MÁRQUEZ MD Ot V58.69 OTH MED,LT,CURRENT USE 03/27/2016 SUE MÁRQUEZ MD Ot V67.09 SURGERY FOLLOW-UP, OTHER SURGERY 03/27/2016 SUE MÁRQUEZ MD Ot 244.9 HYPOTHYROIDISM NOS 03/27/2016 SUE MÁRQUEZ MD Ot 272.0 PURE HYPERCHOLESTEROLEM 03/27/2016 SUE MÁRQUEZ MD Ot 401.9 HYPERTENSION NOS 03/27/2016 SUE MÁRQUEZ MD Ot V10.43 HX OF OVARIAN MALIGNANCY 03/27/2016 SUE MÁRQUEZ MD Ot V10.82 HX-MALIG SKIN MELANOMA 03/27/2016 SUE MÁRQUEZ MD Ot V58.69 OTH MED,LT,CURRENT USE 03/27/2016 SUE MÁRQUEZ MD Ot V67.09 SURGERY FOLLOW-UP, OTHER SURGERY 03/27/2016 SUE MÁRQUEZ MD Ot V88.01 ACQUIRED ABSENCE OF BOTH CERVIX AND UTER 03/27/2016 Ot V76.12 OTH SCREEN MAMMO-MALIGN NEOPLASM OF ABY 03/27/2016 SUE MÁRQUEZ MD Ot 244.9 HYPOTHYROIDISM NOS 03/27/2016 YULISA CARTER, SUE Ot 272.0 PURE HYPERCHOLESTEROLEM 03/27/2016 YULISA CARTER, SUE Ot 401.9 HYPERTENSION NOS 03/27/2016 YULISA CARTER, SUE Ot V10.43 HX OF OVARIAN MALIGNANCY 03/27/2016 SUE MÁRQUEZ MD, Ot V10.82 HX-MALIG SKIN MELANOMA 03/27/2016 SUE MÁRQUEZ MD, Ot V58.69 OTH MED,LT,CURRENT USE 03/27/2016 SUE MÁRQUEZ MD, Ot V67.09 SURGERY FOLLOW-UP, OTHER SURGERY 03/27/2016 SUE MÁRQUEZ MD, Ot V88.01 ACQUIRED ABSENCE OF BOTH CERVIX AND UTER 03/27/2016 SUE MÁRQUEZ MD, Ot Z12.31 ENCNTR SCREEN MAMMOGRAM FOR MALIGNANT NE 03/27/2016 SUE MÁRQUEZ MD, Ot E03.9 HYPOTHYROIDISM, UNSPECIFIED 03/27/2016 SUE MÁRQUEZ MD, Ot E78.0 PURE HYPERCHOLESTEROLEMIA 03/27/2016 SUE MÁRQUEZ MD, Ot I10 ESSENTIAL (PRIMARY) HYPERTENSION 03/27/2016 SUE MÁRQUEZ MD, Ot Z08 ENCNTR FOR FOLLOW-UP EXAM AFTER TRTMT FO 03/27/2016 SUE MÁRQUZE MD, Ot Z79.899 OTHER MCC (CURRENT) DRUG THERAPY 03/27/2016 SUE MÁRQUEZ MD Ot Z85.43 PERSONAL HISTORY OF MALIGNANT NEOPLASM O 03/27/2016 SUE MÁRQUEZ MD Ot Z85.820 PERSONAL HISTORY OF MALIGNANT MELANOMA O 03/27/2016 SUE MÁRQUEZ MD Ot Z90.710 ACQUIRED ABSENCE OF BOTH CERVIX AND UTER 09/13/2016 SUE MÁRQUEZ MD, Ot C43.62 MALIGNANT MELANOMA OF LEFT UPPER LIMB, I 09/13/2016 SUE MÁRQUEZ MD, Ot C56.2 MALIGNANT NEOPLASM OF LEFT OVARY 09/13/2016 SUE MÁRQUEZ MD, Ot E03.9 HYPOTHYROIDISM, UNSPECIFIED 09/13/2016 SUE MÁRQUEZ MD, Ot E78.5 HYPERLIPIDEMIA, UNSPECIFIED 09/13/2016 SUE MÁRQUEZ MD Ot I10 ESSENTIAL (PRIMARY) HYPERTENSION 09/13/2016 SUE MÁRQUEZ MD, Ot 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 11/02/2016 ROXY MAHER S52.531D COLLES' FRACTURE OF R RADIUS, SUBS FOR CLOS FX W ROUTN HEAL 11/02/2016 ROXY MAHER V54.12 AFTERCARE FOR HEALING TRAUMATIC FRACTURE OF LOWER ARM 11/02/2016 Nahum Cowart 813.41 FRACTURE, CLOSED, COLLES' 11/02/2016 Nahum Cowart S52.531A COLLES' FRACTURE OF RIGHT RADIUS, INIT FOR CLOS FX 12/20/2016 SUE MÁRQUEZ MD, Ot C43.62 MALIGNANT MELANOMA OF LEFT UPPER LIMB, I 12/20/2016 SUE MÁRQUEZ MD, Ot C56.2 MALIGNANT NEOPLASM OF LEFT OVARY 12/20/2016 SUE MÁRQUEZ MD, Ot E03.9 HYPOTHYROIDISM, UNSPECIFIED 12/20/2016 SUE MÁRQUEZ MD, Ot E78.5 HYPERLIPIDEMIA, UNSPECIFIED 12/20/2016 SUE MÁRQUEZ MD, Ot I10 ESSENTIAL (PRIMARY) HYPERTENSION 12/20/2016 SUE MÁRQUEZ MD, Ot 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 01/02/2017 SUE MÁRQUEZ MD, Ot C43.62 MALIGNANT MELANOMA OF LEFT UPPER LIMB, I 01/02/2017 SUE MÁRQUEZ MD, Ot C56.2 MALIGNANT NEOPLASM OF LEFT OVARY 01/02/2017 SUE MÁRQUEZ MD, Ot E03.9 HYPOTHYROIDISM, UNSPECIFIED 01/02/2017 SUE MÁRQUEZ MD Ot E78.5 HYPERLIPIDEMIA, UNSPECIFIED 01/02/2017 SUE MÁRQUEZ MD, Ot I10 ESSENTIAL (PRIMARY) HYPERTENSION 01/02/2017 SUE MÁRQUEZ MD, Ot Z79.899 OTHER [facility] (CURRENT) DRUG THERAPY 03/06/2017 KEVEN ARCINIEGA MD Ot 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, INC 03/06/2017 KEVEN ARCINIEGA MD Ot N28.89 OTHER SPECIFIED DISORDERS OF KIDNEY AND 03/29/2017 KEVEN ARCINIEGA MD Ot I51.7 CARDIOMEGALY 03/29/2017 KEVEN ARCINIEGA MD Ot N28.89 OTHER SPECIFIED DISORDERS OF KIDNEY AND 05/01/2017 KEVEN ARCINIEGA MD Ot I51.7 CARDIOMEGALY 05/01/2017 KEVEN ARCINIEGA MD Ot N28.89 OTHER SPECIFIED DISORDERS OF KIDNEY AND 06/21/2017 Amber Ramon W 486 PNEUMONIA, ORGANISM UNSPECIFIED 06/21/2017 Amber Ramon J18.9 PNEUMONIA, UNSPECIFIED ORGANISM 06/21/2017 Ramon, Rowan-Lety W 486 PNEUMONIA, ORGANISM UNSPECIFIED 06/21/2017, Rowan-Lety W J18.9 PNEUMONIA, UNSPECIFIED ORGANISM 07/12/2017 Ramon, Rowan-Lety W 592.0 CALCULUS OF KIDNEY 07/12/2017 Ramon, Rowan-Lety W 599.0 URINARY TRACT INFECTION, SITE NOT SPECIFIED 07/12/2017 Ramon, Rowan-Lety W N20.0 CALCULUS OF KIDNEY 07/12/2017 Ramon, Rowan-Lety W N39.0 URINARY TRACT INFECTION, SITE NOT SPECIFIED 07/12/2017 Ramon, Rowan-Lety W 592.0 CALCULUS OF KIDNEY 07/12/2017 Ramon, Rowan-Lety W 599.0 URINARY TRACT INFECTION, SITE NOT SPECIFIED 07/12/2017 Ramon, Rowan-Lety W N20.0 CALCULUS OF KIDNEY 07/12/2017 Ramon, Rowan-Lety W N39.0 URINARY TRACT INFECTION, SITE NOT SPECIFIED 07/12/2017 Ramon, Rowan-Lety W 592.0 CALCULUS OF KIDNEY 07/12/2017 Ramon, Rowan-Lety W 599.0 URINARY TRACT INFECTION, SITE NOT SPECIFIED 07/12/2017 Ramon, Rowan-Lety W N20.0 CALCULUS OF KIDNEY 07/12/2017 Ramon, Rowan-Lety W N39.0 URINARY TRACT INFECTION, SITE NOT SPECIFIED 07/12/2017 Ramon, Rowan-Lety W 592.0 CALCULUS OF KIDNEY 07/12/2017 Ramon, Rowan-Lety W 599.0 URINARY TRACT INFECTION, SITE NOT SPECIFIED 07/12/2017 Ramon, Rowan-Lety W N20.0 CALCULUS OF KIDNEY 07/12/2017 Raomn, Rowan-Lety W N39.0 URINARY TRACT INFECTION, SITE NOT SPECIFIED 08/28/2017 YULISA CARTER, SUE Ot 244.9 HYPOTHYROIDISM NOS 08/28/2017 YULISA CARTER, SUE Ot 272.0 PURE HYPERCHOLESTEROLEM 08/28/2017 YULISA CARTER, SUE Ot 401.9 HYPERTENSION NOS 08/28/2017 YULISA CARTER, SUE Ot V10.43 HX OF OVARIAN MALIGNANCY 08/28/2017 YULISA CARTER, SUE Ot V10.82 HX-MALIG SKIN MELANOMA 08/28/2017 SUE MÁRQUEZ MD Ot V45.77 ACQRD ABSENCE OF GENITAL ORGANS 08/28/2017 SUE MÁRQUEZ MD Ot V58.69 OTH MED,LT,CURRENT USE 08/28/2017 SUE MÁRQUEZ MD Ot V67.09 SURGERY FOLLOW-UP, OTHER SURGERY 08/28/2017 SUE MÁRQUEZ MD Ot V76.12 OTH SCREEN MAMMO-MALIGN NEOPLASM OF ABY 08/28/2017 SUE MÁRQUEZ MD Ot 244.9 HYPOTHYROIDISM NOS 08/28/2017 YULISA CARTER, SUE Ot 272.0 PURE HYPERCHOLESTEROLEM 08/28/2017 YULISA CARTER, SUE Ot 401.9 HYPERTENSION NOS 08/28/2017 SUE MÁRQUEZ MD Ot V10.43 HX OF OVARIAN MALIGNANCY 08/28/2017 SUE MÁRQUEZ MD Ot V10.82 HX-MALIG SKIN MELANOMA 08/28/2017 SUE MÁRQUEZ MD Ot V45.77 ACQRD ABSENCE OF GENITAL ORGANS 08/28/2017 SUE MÁRQUEZ MD Ot V58.69 OTH MED,LT,CURRENT USE 08/28/2017 SUE MÁRQUEZ MD Ot V67.09 SURGERY FOLLOW-UP, OTHER SURGERY 08/28/2017 SUE MÁRQUEZ MD Ot 244.9 HYPOTHYROIDISM NOS 08/28/2017 SUE MÁRQUEZ MD Ot 272.0 PURE HYPERCHOLESTEROLEM 08/28/2017 YULISA CARTER, SUE Ot 401.9 HYPERTENSION NOS 08/28/2017 SUE MÁRQUEZ MD Ot V10.43 HX OF OVARIAN MALIGNANCY 08/28/2017 SUE MÁRQUEZ MD Ot V10.82 HX-MALIG SKIN MELANOMA 08/28/2017 SUE MÁRQUEZ MD Ot V58.69 OTH MED,LT,CURRENT USE 08/28/2017 SUE MÁRQUEZ MD Ot V67.09 SURGERY FOLLOW-UP, OTHER SURGERY 08/28/2017 SUE MÁRQUEZ MD Ot V88.01 ACQUIRED ABSENCE OF BOTH CERVIX AND UTER 08/28/2017 Ot V76.12 OTH SCREEN MAMMO-MALIGN NEOPLASM OF ABY 08/28/2017 SUE MÁRQUEZ MD Ot 244.9 HYPOTHYROIDISM NOS 08/28/2017 YULISA CARTER, SUE Ot 272.0 PURE HYPERCHOLESTEROLEM 08/28/2017 SUE MÁRQUEZ MD Ot 401.9 HYPERTENSION NOS 08/28/2017 SUE MÁRQUEZ MD Ot V10.43 HX OF OVARIAN MALIGNANCY 08/28/2017 SUE MÁRQUEZ MD, Ot V10.82 HX-MALIG SKIN MELANOMA 08/28/2017 SUE MÁRQUEZ MD, Ot V58.69 OTH MED,LT,CURRENT USE 08/28/2017 SUE MÁRQUEZ MD, Ot V67.09 SURGERY FOLLOW-UP, OTHER SURGERY 08/28/2017 SUE MÁRQUEZ MD Ot V88.01 ACQUIRED ABSENCE OF BOTH CERVIX AND UTER 08/28/2017 SUE MÁRQUEZ MD, Ot Z12.31 ENCNTR SCREEN MAMMOGRAM FOR MALIGNANT NE 08/28/2017 SUE MÁRQUEZ MD, Ot E03.9 HYPOTHYROIDISM, UNSPECIFIED 08/28/2017 SEU MÁRQUEZ MD Ot E78.0 PURE HYPERCHOLESTEROLEMIA 08/28/2017 SUE MÁRQUEZ MD, Ot I10 ESSENTIAL (PRIMARY) HYPERTENSION 08/28/2017 SUE MÁRQUEZ MD Ot Z08 ENCNTR FOR FOLLOW-UP EXAM AFTER TRTMT FO 08/28/2017 SUE MÁRQUEZ MD Ot Z79.899 OTHER [facility] (CURRENT) DRUG THERAPY 08/28/2017 SUE MÁRQUEZ MD, Ot Z85.43 PERSONAL HISTORY OF MALIGNANT NEOPLASM O 08/28/2017 SUE MÁRQUEZ MD Ot Z85.820 PERSONAL HISTORY OF MALIGNANT MELANOMA O 08/28/2017 SUE MÁRQUEZ MD Ot Z90.710 ACQUIRED ABSENCE OF BOTH CERVIX AND UTER 08/28/2017 SUE MÁRQUEZ MD Ot C43.62 MALIGNANT MELANOMA OF LEFT UPPER LIMB, I 08/28/2017 SUE MÁRQUEZ MD Ot C56.2 MALIGNANT NEOPLASM OF LEFT OVARY 08/28/2017 SUE MÁRQUEZ MD Ot E03.9 HYPOTHYROIDISM, UNSPECIFIED 08/28/2017 SUE MÁRQUEZ MD Ot E78.5 HYPERLIPIDEMIA, UNSPECIFIED 08/28/2017 SUE MÁRQUEZ MD Ot I10 ESSENTIAL (PRIMARY) HYPERTENSION 08/28/2017 SUE MÁRQUEZ MD Ot Z79.899 OTHER [facility] (CURRENT) DRUG THERAPY 08/28/2017 SUE MÁRQUEZ MD Ot Z12.31 ENCNTR SCREEN MAMMOGRAM FOR MALIGNANT NE 08/28/2017 DEMIAN CARTER, KEVEN Parker Ot I51.7 CARDIOMEGALY 08/28/2017 DEMIAN CARTER, KEVEN Parker Ot N28.89 OTHER SPECIFIED DISORDERS OF KIDNEY AND 08/29/2017 SUE MÁRQUEZ MD, Ot Z12.31 ENCNTR SCREEN MAMMOGRAM FOR MALIGNANT NE 09/03/2017 SUE MÁRQUEZ MD, Ot Z12.31 ENCNTR SCREEN MAMMOGRAM FOR MALIGNANT NE 09/12/2017 SUE MÁRQUEZ MD Ot C43.62 MALIGNANT MELANOMA OF LEFT UPPER LIMB, I 09/12/2017 SUE MÁRQUEZ MD Ot E03.9 HYPOTHYROIDISM, UNSPECIFIED 09/12/2017 SUE MÁRQUEZ MD, Ot E78.5 HYPERLIPIDEMIA, UNSPECIFIED 09/12/2017 SUE MÁRQUEZ MD, Ot I10 ESSENTIAL (PRIMARY) HYPERTENSION 09/12/2017 SUE MÁRQUEZ MD, Ot 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 09/15/2017 Ramon, Rowan-Lety W 276.1 HYPOSMOLALITY AND/OR HYPONATREMIA 09/15/2017, Rowan-Lety W E87.1 HYPO-OSMOLALITY AND HYPONATREMIA 09/15/2017 Ramon, Rowan-Lety W 276.1 HYPOSMOLALITY AND/OR HYPONATREMIA 09/15/2017 Ramon, Rowan-Lety W E87.1 HYPO-OSMOLALITY AND HYPONATREMIA 09/15/2017 Ramon, Rowan-Lety W 276.1 HYPOSMOLALITY AND/OR HYPONATREMIA 09/15/2017 Ramon, Rowan-Lety W E87.1 HYPO-OSMOLALITY AND HYPONATREMIA 09/18/2017 SUE MÁRQUEZ MD Ot Z12.31 ENCNTR SCREEN MAMMOGRAM FOR MALIGNANT NE 09/26/2017 Ramon, Rowan-Lety W 189.0 MALIGNANT NEOPLASM OF KIDNEY, EXCEPT PELVIS 09/26/2017 Ramon, Rowan-Lety W 276.1 HYPOSMOLALITY AND/OR HYPONATREMIA 09/26/2017 Ramon, Rowan-Lety W C64.9 MALIGNANT NEOPLASM OF UNSPECIFIED KIDNEY, EXCEPT RENAL PELVIS 09/26/2017 Ramon, Rowan-Lety W E87.1 HYPO-OSMOLALITY AND HYPONATREMIA 09/26/2017 Ramon, Rowan-Lety W Z90.5 ACQUIRED ABSENCE OF KIDNEY 09/26/2017 Amber Ramon W 189.0 MALIGNANT NEOPLASM OF KIDNEY, EXCEPT PELVIS 09/26/2017 Amber Ramon W 276.1 HYPOSMOLALITY AND/OR HYPONATREMIA 09/26/2017 Amber Ramon W C64.9 MALIGNANT NEOPLASM OF UNSPECIFIED KIDNEY, EXCEPT RENAL PELVIS 09/26/2017 Amber Ramon W E87.1 HYPO-OSMOLALITY AND HYPONATREMIA 09/26/2017 Amber Ramon W Z90.5 ACQUIRED ABSENCE OF KIDNEY 10/10/2017 SUE MÁRQUEZ MD, Ot E03.9 HYPOTHYROIDISM, UNSPECIFIED 10/10/2017 SUE MÁRQUEZ MD, Ot E78.00 PURE HYPERCHOLESTEROLEMIA, UNSPECIFIED 10/10/2017 SUE MÁRQUEZ MD, Ot E87.1 HYPO-OSMOLALITY AND HYPONATREMIA 10/10/2017 SUE MÁRQUEZ MD, Ot I10 ESSENTIAL (PRIMARY) HYPERTENSION 10/10/2017 SUE MÁRQUEZ MD, Ot Z08 ENCNTR FOR FOLLOW-UP EXAM AFTER TRTMT FO 10/10/2017 SUE MÁRQUEZ MD, Ot Z79.899 OTHER MCC (CURRENT) DRUG THERAPY 10/10/2017 SUE MÁRQUEZ MD Ot Z85.43 PERSONAL HISTORY OF MALIGNANT NEOPLASM O 10/10/2017 SUE MÁRQUEZ MD Ot Z85.528 PERSONAL HISTORY OF OTHER MALIGNANT NEOP 10/10/2017 SUE MÁRQUEZ MD Ot Z85.820 PERSONAL HISTORY OF MALIGNANT MELANOMA O 10/10/2017 SUE MÁRQUEZ MD, Ot Z90.5 ACQUIRED ABSENCE OF KIDNEY 10/22/2017 SUE MÁRQUEZ MD, Ot E03.9 HYPOTHYROIDISM, UNSPECIFIED 10/22/2017 SUE MÁRQUEZ MD, Ot E78.00 PURE HYPERCHOLESTEROLEMIA, UNSPECIFIED 10/22/2017 SUE MÁRQUEZ MD, Ot E87.1 HYPO-OSMOLALITY AND HYPONATREMIA 10/22/2017 SUE MÁRQUEZ MD Ot I10 ESSENTIAL (PRIMARY) HYPERTENSION 10/22/2017 SUE MÁRQUEZ MD Ot Z08 ENCNTR FOR FOLLOW-UP EXAM AFTER TRTMT FO 10/22/2017 SUE MÁRQUEZ MD, Ot Z79.899 OTHER MCC (CURRENT) DRUG THERAPY 10/22/2017 SUE MÁRQUEZ MD Ot Z85.43 PERSONAL HISTORY OF MALIGNANT NEOPLASM O 10/22/2017 SUE MÁRQUEZ MD Ot Z85.528 PERSONAL HISTORY OF OTHER MALIGNANT NEOP 10/22/2017 SUE MÁRQUEZ MD Ot Z85.820 PERSONAL HISTORY OF MALIGNANT MELANOMA O 10/22/2017 SUE MÁRQUEZ MD Ot Z90.5 ACQUIRED ABSENCE OF KIDNEY 12/09/2017 SUE MÁRQUEZ MD Ot E03.9 HYPOTHYROIDISM, UNSPECIFIED 12/09/2017 SUE MÁRQUEZ MD Ot E78.00 PURE HYPERCHOLESTEROLEMIA, UNSPECIFIED 12/09/2017 SUE MÁRQUEZ MD Ot E87.1 HYPO-OSMOLALITY AND HYPONATREMIA 12/09/2017 SUE MÁRQUEZ MD, Ot I10 ESSENTIAL (PRIMARY) HYPERTENSION 12/09/2017 SUE MÁRQUEZ MD Ot Z08 ENCNTR FOR FOLLOW-UP EXAM AFTER TRTMT FO 12/09/2017 SUE MÁRQUEZ MD Ot 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 12/09/2017 SUE ÁMRQUEZ MD Ot Z85.43 PERSONAL HISTORY OF MALIGNANT NEOPLASM O 12/09/2017 SUE MÁRQUEZ MD Ot Z85.528 PERSONAL HISTORY OF OTHER MALIGNANT NEOP 12/09/2017 SUE MÁRQUEZ MD Ot Z85.820 PERSONAL HISTORY OF MALIGNANT MELANOMA O 12/09/2017 SUE MÁRQUEZ MD Ot Z90.5 ACQUIRED ABSENCE OF KIDNEY 12/28/2017 Eboh, Rhanda A 296.32 MAJOR DEPRESSIVE DISORDER, RECURRENT EPISODE, MODERATE DEGREE 12/28/2017 Eboh, Rhanda A F33.1 MAJOR DEPRESSIVE DISORDER, RECURRENT, MODERATE 07/02/2018 Dieter Ramonu A 401.9 UNSPECIFIED ESSENTIAL HYPERTENSION 07/02/2018 Ramon Rowan-Lety W 460 ACUTE NASOPHARYNGITIS [COMMON COLD] 07/02/2018 Ramon Rowan-Lety W 780.50 UNSPECIFIED SLEEP DISTURBANCE 07/02/2018 Ramon, Rowan-Lety W G47.9 SLEEP DISORDER, UNSPECIFIED 07/02/2018 Ramon, Rowan-Lety A I10 ESSENTIAL (PRIMARY) HYPERTENSION 07/02/2018 Dieter Ramonu W J00 ACUTE NASOPHARYNGITIS [COMMON COLD] 07/02/2018 Ramon, Rowan-Lety W V82.81 SCREENING FOR OSTEOPOROSIS 07/02/2018 Ramon, Rowan-Lety W Z13.820 ENCOUNTER FOR SCREENING FOR OSTEOPOROSIS 07/02/2018 Ramon, Rowan-Lety A 401.9 UNSPECIFIED ESSENTIAL HYPERTENSION 07/02/2018 Ramon, Rowan-Lety W 460 ACUTE NASOPHARYNGITIS [COMMON COLD] 07/02/2018 Ramon, NewtonLety W 780.50 UNSPECIFIED SLEEP DISTURBANCE 07/02/2018 Ramon, NewtonLety W G47.9 SLEEP DISORDER, UNSPECIFIED 07/02/2018 Ramon, Rowan-Lety A I10 ESSENTIAL (PRIMARY) HYPERTENSION 07/02/2018 Ramon, Rowan-Lety W J00 ACUTE NASOPHARYNGITIS [COMMON COLD] 07/02/2018 Ramon, NewtonLety W V82.81 SCREENING FOR OSTEOPOROSIS 07/02/2018 Ramon, Dieteru W Z13.820 ENCOUNTER FOR SCREENING FOR OSTEOPOROSIS 08/08/2018 Ramon, Rowan-Lety W 278.00 OBESITY, UNSPECIFIED 08/08/2018 Ramon, Rowan-Lety W 296.30 08/08/2018 Ramon, NewtonLety A 401.9 UNSPECIFIED ESSENTIAL HYPERTENSION 08/08/2018 Ramon, Dieteru W 460 ACUTE NASOPHARYNGITIS [COMMON COLD] 08/08/2018 Ramon, Rowan-Lety W 780.50 UNSPECIFIED SLEEP DISTURBANCE 08/08/2018 Ramon, NewtonLety W 787.01 NAUSEA WITH VOMITING 08/08/2018 Ramon, NewtonLety W E66.09 OTHER OBESITY DUE TO EXCESS CALORIES 08/08/2018 Ramon, Rowan-Lety W F33.9 MAJOR DEPRESSIVE DISORDER, RECURRENT, UNSPECIFIED 08/08/2018 Ramon, Rowan-Lety W G47.9 SLEEP DISORDER, UNSPECIFIED 08/08/2018 Ramon, Rowan-Lety A I10 ESSENTIAL (PRIMARY) HYPERTENSION 08/08/2018 Ramon, Rowan-Lety W J00 ACUTE NASOPHARYNGITIS [COMMON COLD] 08/08/2018 Ramon, Rowan-Lety W R11.2 NAUSEA WITH VOMITING, UNSPECIFIED 08/08/2018 Ramon, Rowan-Lety W 278.00 08/08/2018 Ramon, Rowan-Lety W 296.30 08/08/2018 Ramon, Dieteru A 401.9 UNSPECIFIED ESSENTIAL HYPERTENSION 08/08/2018 Ramon, Rowan-Lety W 460 ACUTE NASOPHARYNGITIS [COMMON COLD] 08/08/2018 Ramon, Rowan-Lety W 780.50 UNSPECIFIED SLEEP DISTURBANCE 08/08/2018 Ramon, Rowan-Lety W 787.01 NAUSEA WITH VOMITING 08/08/2018 Ramon, Rowan-Lety W E66.09 OTHER OBESITY DUE TO EXCESS CALORIES 08/08/2018 Ramon, Rowan-Lety W F33.9 MAJOR DEPRESSIVE DISORDER, RECURRENT, UNSPECIFIED 08/08/2018 Ramon, Rowan-Lety W G47.9 SLEEP DISORDER, UNSPECIFIED 08/08/2018 Ramon, Rowan-Lety A I10 ESSENTIAL (PRIMARY) HYPERTENSION 08/08/2018 Ramon, Rowan-Lety W J00 ACUTE NASOPHARYNGITIS [COMMON COLD] 08/08/2018 Ramon, Dieteru W R11.2 NAUSEA WITH VOMITING, UNSPECIFIED 09/04/2018 Ramon, Rowan-Lety W 787.91 DIARRHEA 09/04/2018 Ramon, Dieteru W R19.7 DIARRHEA, UNSPECIFIED 09/04/2018 Ramon, Rowan-Lety W 787.91 DIARRHEA 09/04/2018 Ramon, Rowan-Lety W R19.7 DIARRHEA, UNSPECIFIED 09/23/2018 SUE MÁRQUEZ MD, Ot V76.12 OTH SCREEN MAMMO-MALIGN NEOPLASM OF ABY 09/23/2018 SUE MÁRQUEZ MD Ot 244.9 HYPOTHYROIDISM NOS 09/23/2018 SUE MÁRQUEZ MD Ot 272.0 PURE HYPERCHOLESTEROLEM 09/23/2018 SUE MÁRQUEZ MD Ot 401.9 HYPERTENSION NOS 09/23/2018 SUE MÁRQUEZ MD Ot V10.43 HX OF OVARIAN MALIGNANCY 09/23/2018 SUE MÁRQUEZ MD Ot V10.82 HX-MALIG SKIN MELANOMA 09/23/2018 SUE MÁRQUEZ MD Ot V45.77 ACQRD ABSENCE OF GENITAL ORGANS 09/23/2018 SUE MÁRQUEZ MD, Ot V58.69 OTH MED,LT,CURRENT USE 09/23/2018 SUE MÁRQUEZ MD, Ot V67.09 SURGERY FOLLOW-UP, OTHER SURGERY 09/23/2018 SUE MÁRQUEZ MD Ot 244.9 HYPOTHYROIDISM NOS 09/23/2018 SUE MÁRQUEZ MD Ot 272.0 PURE HYPERCHOLESTEROLEM 09/23/2018 SUE MÁRQUEZ MD Ot 401.9 HYPERTENSION NOS 09/23/2018 SUE MÁRQUEZ MD Ot V10.43 HX OF OVARIAN MALIGNANCY 09/23/2018 SUE MÁRQUEZ MD Ot V10.82 HX-MALIG SKIN MELANOMA 09/23/2018 SUE MÁRQUEZ MD Ot V58.69 OTH MED,LT,CURRENT USE 09/23/2018 SUE MÁRQUEZ MD Ot V67.09 SURGERY FOLLOW-UP, OTHER SURGERY 09/23/2018 SUE MÁRQUEZ MD Ot V88.01 ACQUIRED ABSENCE OF BOTH CERVIX AND UTER 09/23/2018 Ot V76.12 OTH SCREEN MAMMO-MALIGN NEOPLASM OF ABY 09/23/2018 SUE MÁRQUEZ MD Ot 244.9 HYPOTHYROIDISM NOS 09/23/2018 SUE MÁRQUEZ MD Ot 272.0 PURE HYPERCHOLESTEROLEM 09/23/2018 SUE MÁRQUEZ MD Ot 401.9 HYPERTENSION NOS 09/23/2018 SUE MÁRQUEZ MD Ot V10.43 HX OF OVARIAN MALIGNANCY 09/23/2018 SUE MÁRQUEZ MD Ot V10.82 HX-MALIG SKIN MELANOMA 09/23/2018 SUE MÁRQUEZ MD Ot V58.69 OTH MED,LT,CURRENT USE 09/23/2018 SUE MÁRQUEZ MD Ot V67.09 SURGERY FOLLOW-UP, OTHER SURGERY 09/23/2018 SUE MÁRQUEZ MD Ot V88.01 ACQUIRED ABSENCE OF BOTH CERVIX AND UTER 09/23/2018 SUE MÁRQUEZ MD Ot Z12.31 ENCNTR SCREEN MAMMOGRAM FOR MALIGNANT NE 09/23/2018 SUE MÁRQUEZ MD Ot E03.9 HYPOTHYROIDISM, UNSPECIFIED 09/23/2018 SUE MÁRQUEZ MD Ot E78.0 PURE HYPERCHOLESTEROLEMIA 09/23/2018 SUE MÁRQUEZ MD Ot I10 ESSENTIAL (PRIMARY) HYPERTENSION 09/23/2018 SUE MÁRQUEZ MD Ot Z08 ENCNTR FOR FOLLOW-UP EXAM AFTER TRTMT FO 09/23/2018 SEU MÁRQUEZ MD Ot 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 09/23/2018 SUE MÁRQUEZ MD, Ot Z85.43 PERSONAL HISTORY OF MALIGNANT NEOPLASM O 09/23/2018 SUE MÁRQUEZ MD, Ot Z85.820 PERSONAL HISTORY OF MALIGNANT MELANOMA O 09/23/2018 SUE MÁRQUEZ MD, Ot Z90.710 ACQUIRED ABSENCE OF BOTH CERVIX AND UTER 09/23/2018 SUE MÁRQUEZ MD, Ot C43.62 MALIGNANT MELANOMA OF LEFT UPPER LIMB, I 09/23/2018 SUE MÁRQUEZ MD Ot E03.9 HYPOTHYROIDISM, UNSPECIFIED 09/23/2018 SUE MÁRQUEZ MD Ot E78.5 HYPERLIPIDEMIA, UNSPECIFIED 09/23/2018 SUE MÁRQUEZ MD, Ot I10 ESSENTIAL (PRIMARY) HYPERTENSION 09/23/2018 SUE MÁRQUEZ MD, Ot 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 09/23/2018 SUE MÁRQUEZ MD, Ot Z12.31 ENCNTR SCREEN MAMMOGRAM FOR MALIGNANT NE 09/23/2018 KEVEN ARCINIEGA MD Ot I51.7 CARDIOMEGALY 09/23/2018 KEVEN ARCINIEGA MD Ot N28.89 OTHER SPECIFIED DISORDERS OF KIDNEY AND 09/23/2018 SUE MÁRQUEZ MD, Ot E03.9 HYPOTHYROIDISM, UNSPECIFIED 09/23/2018 SUE MÁRQUEZ MD Ot E78.00 PURE HYPERCHOLESTEROLEMIA, UNSPECIFIED 09/23/2018 SUE MÁRQUEZ MD Ot E87.1 HYPO-OSMOLALITY AND HYPONATREMIA 09/23/2018 SUE MÁRQUEZ MD, Ot I10 ESSENTIAL (PRIMARY) HYPERTENSION 09/23/2018 SUE MÁRQUEZ MD, Ot Z08 ENCNTR FOR FOLLOW-UP EXAM AFTER TRTMT FO 09/23/2018 SUE MÁRQUEZ MD, Ot Z79.899 OTHER MCC (CURRENT) DRUG THERAPY 09/23/2018 SUE MÁRQUEZ MD, Ot Z85.43 PERSONAL HISTORY OF MALIGNANT NEOPLASM O 09/23/2018 SUE MÁRQUEZ MD, Ot Z85.528 PERSONAL HISTORY OF OTHER MALIGNANT NEOP 09/23/2018 SUE MÁRQUEZ MD, Ot Z85.820 PERSONAL HISTORY OF MALIGNANT MELANOMA O 09/23/2018 SUE MÁRQUEZ MD, Ot Z90.5 ACQUIRED ABSENCE OF KIDNEY 09/24/2018 SUE MÁRQUZE MD Ot E03.9 HYPOTHYROIDISM, UNSPECIFIED 09/24/2018 SUE MÁRQUEZ MD Ot E78.00 PURE HYPERCHOLESTEROLEMIA, UNSPECIFIED 09/24/2018 SUE MÁRQUEZ MD Ot E87.1 HYPO-OSMOLALITY AND HYPONATREMIA 09/24/2018 SUE MÁRQUEZ MD Ot I10 ESSENTIAL (PRIMARY) HYPERTENSION 09/24/2018 SUE MÁRQUEZ MD, Ot Z08 ENCNTR FOR FOLLOW-UP EXAM AFTER TRTMT FO 09/24/2018 SUE MÁRQUEZ MD Ot 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 09/24/2018 SUE MÁRQUEZ MD, Ot Z85.43 PERSONAL HISTORY OF MALIGNANT NEOPLASM O 09/24/2018 SUE MÁRQUEZ MD Ot Z85.528 PERSONAL HISTORY OF OTHER MALIGNANT NEOP 09/24/2018 SUE MÁRQUEZ MD, Ot Z85.820 PERSONAL HISTORY OF MALIGNANT MELANOMA O 09/24/2018 SUE MÁRQUEZ MD Ot Z90.5 ACQUIRED ABSENCE OF KIDNEY 10/02/2018 KO WEBER MD Ot Z01.818 ENCOUNTER FOR OTHER PREPROCEDURAL EXAMIN 10/03/2018 KO WEBER MD Ot Z01.818 ENCOUNTER FOR OTHER PREPROCEDURAL EXAMIN 10/03/2018 KO WEBER MD Ot Z01.818 ENCOUNTER FOR OTHER PREPROCEDURAL EXAMIN 10/04/2018 SUE MÁRQUEZ MD, Ot V76.12 OTH SCREEN MAMMO-MALIGN NEOPLASM OF ABY 10/04/2018 SUE MÁRQUEZ MD Ot 244.9 HYPOTHYROIDISM NOS 10/04/2018 SUE MÁRQUEZ MD Ot 272.0 PURE HYPERCHOLESTEROLEM 10/04/2018 SUE MÁRQUEZ MD Ot 401.9 HYPERTENSION NOS 10/04/2018 SUE MÁRQUEZ MD Ot V10.43 HX OF OVARIAN MALIGNANCY 10/04/2018 SUE MÁRQUEZ MD, Ot V10.82 HX-MALIG SKIN MELANOMA 10/04/2018 SUE MÁRQUEZ MD Ot V45.77 ACQRD ABSENCE OF GENITAL ORGANS 10/04/2018 SUE MÁRQUEZ MD, Ot V58.69 OTH MED,LT,CURRENT USE 10/04/2018 XUN MD, WILKINS-JOAQUIN Ot V67.09 SURGERY FOLLOW-UP, OTHER SURGERY 10/04/2018 SUE MÁRQUEZ MD Ot 244.9 HYPOTHYROIDISM NOS 10/04/2018 SUE MÁRQUEZ MD Ot 272.0 PURE HYPERCHOLESTEROLEM 10/04/2018 YULISA CARTER, SUE Ot 401.9 HYPERTENSION NOS 10/04/2018 SUE MÁRQUEZ MD Ot V10.43 HX OF OVARIAN MALIGNANCY 10/04/2018 SUE MÁRQUEZ MD Ot V10.82 HX-MALIG SKIN MELANOMA 10/04/2018 SUE MÁRQUEZ MD Ot V58.69 OTH MED,LT,CURRENT USE 10/04/2018 SUE MÁRQUEZ MD Ot V67.09 SURGERY FOLLOW-UP, OTHER SURGERY 10/04/2018 SUE MÁRQUEZ MD Ot V88.01 ACQUIRED ABSENCE OF BOTH CERVIX AND UTER 10/04/2018 Ot V76.12 OTH SCREEN MAMMO-MALIGN NEOPLASM OF ABY 10/04/2018 SUE MÁRQUEZ MD Ot 244.9 HYPOTHYROIDISM NOS 10/04/2018 SUE MÁRQUEZ MD Ot 272.0 PURE HYPERCHOLESTEROLEM 10/04/2018 SUE MÁRQUEZ MD Ot 401.9 HYPERTENSION NOS 10/04/2018 SUE MÁRQUEZ MD Ot V10.43 HX OF OVARIAN MALIGNANCY 10/04/2018 SUE MÁRQUEZ MD Ot V10.82 HX-MALIG SKIN MELANOMA 10/04/2018 SUE MÁRQUEZ MD Ot V58.69 OTH MED,LT,CURRENT USE 10/04/2018 SUE MÁRQUEZ MD Ot V67.09 SURGERY FOLLOW-UP, OTHER SURGERY 10/04/2018 SUE MÁRQUEZ MD Ot V88.01 ACQUIRED ABSENCE OF BOTH CERVIX AND UTER 10/04/2018 SUE MÁRQUEZ MD Ot Z12.31 ENCNTR SCREEN MAMMOGRAM FOR MALIGNANT NE 10/04/2018 SUE MÁRQUEZ MD Ot E03.9 HYPOTHYROIDISM, UNSPECIFIED 10/04/2018 SUE MÁRUQEZ MD Ot E78.0 PURE HYPERCHOLESTEROLEMIA 10/04/2018 SUE MÁRQUEZ MD Ot I10 ESSENTIAL (PRIMARY) HYPERTENSION 10/04/2018 SUE MÁRQUEZ MD Ot Z08 ENCNTR FOR FOLLOW-UP EXAM AFTER TRTMT FO 10/04/2018 SUE MÁRQUEZ MD Ot 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 10/04/2018 SUE MÁRQUEZ MD, Ot Z85.43 PERSONAL HISTORY OF MALIGNANT NEOPLASM O 10/04/2018 SUE MÁRQUEZ MD Ot Z85.820 PERSONAL HISTORY OF MALIGNANT MELANOMA O 10/04/2018 SUE MÁRQUEZ MD Ot Z90.710 ACQUIRED ABSENCE OF BOTH CERVIX AND UTER 10/04/2018 SUE MÁRQUEZ MD, Ot C43.62 MALIGNANT MELANOMA OF LEFT UPPER LIMB, I 10/04/2018 SUE MÁRQUEZ MD Ot E03.9 HYPOTHYROIDISM, UNSPECIFIED 10/04/2018 SUE MÁRQUEZ MD Ot E78.5 HYPERLIPIDEMIA, UNSPECIFIED 10/04/2018 SUE MÁRUQEZ MD Ot I10 ESSENTIAL (PRIMARY) HYPERTENSION 10/04/2018 SUE MÁRQUEZ MD, Ot Z79.899 OTHER MCC (CURRENT) DRUG THERAPY 10/04/2018 SUE MÁRQUEZ MD Ot Z12.31 ENCNTR SCREEN MAMMOGRAM FOR MALIGNANT NE 10/04/2018 DEMIAN CARTER, KEVEN Parker Ot I51.7 CARDIOMEGALY 10/04/2018 KEVEN ARCINIEGA MD A Ot N28.89 OTHER SPECIFIED DISORDERS OF KIDNEY AND 10/04/2018 SUE MÁRQUEZ MD, Ot E03.9 HYPOTHYROIDISM, UNSPECIFIED 10/04/2018 SUE MÁRQUEZ MD Ot E78.00 PURE HYPERCHOLESTEROLEMIA, UNSPECIFIED 10/04/2018 SUE MÁRQUEZ MD Ot E87.1 HYPO-OSMOLALITY AND HYPONATREMIA 10/04/2018 SUE MÁRQUEZ MD Ot I10 ESSENTIAL (PRIMARY) HYPERTENSION 10/04/2018 SUE MÁRQUEZ MD Ot Z08 ENCNTR FOR FOLLOW-UP EXAM AFTER TRTMT FO 10/04/2018 SUE MÁRQUEZ MD, Ot Z79.899 OTHER MCC (CURRENT) DRUG THERAPY 10/04/2018 SUE MÁRQUEZ MD Ot Z85.43 PERSONAL HISTORY OF MALIGNANT NEOPLASM O 10/04/2018 SUE MÁRQUEZ MD Ot Z85.528 PERSONAL HISTORY OF OTHER MALIGNANT NEOP 10/04/2018 SUE MÁRQUEZ MD Ot Z85.820 PERSONAL HISTORY OF MALIGNANT MELANOMA O 10/04/2018 SUE MÁRQUEZ MD, Ot Z90.5 ACQUIRED ABSENCE OF KIDNEY 10/04/2018 SUE MÁRQUEZ MD Ot E03.9 HYPOTHYROIDISM, UNSPECIFIED 10/04/2018 SUE MÁRQUEZ MD, Ot E78.00 PURE HYPERCHOLESTEROLEMIA, UNSPECIFIED 10/04/2018 SUE MÁRQUEZ MD, Ot E87.1 HYPO-OSMOLALITY AND HYPONATREMIA 10/04/2018 SUE MÁRQUEZ MD Ot I10 ESSENTIAL (PRIMARY) HYPERTENSION 10/04/2018 SUE MÁRQUEZ MD, Ot Z08 ENCNTR FOR FOLLOW-UP EXAM AFTER TRTMT FO 10/04/2018 SUE MÁRQUEZ MD, Ot Z79.899 OTHER MCC (CURRENT) DRUG THERAPY 10/04/2018 SUE MÁRQUEZ MD, Ot Z85.43 PERSONAL HISTORY OF MALIGNANT NEOPLASM O 10/04/2018 SUE MÁRQUEZ MD, Ot Z85.528 PERSONAL HISTORY OF OTHER MALIGNANT NEOP 10/04/2018 SUE MÁRQUEZ MD, Ot Z85.820 PERSONAL HISTORY OF MALIGNANT MELANOMA O 10/04/2018 SUE MÁRQUEZ MD, Ot Z90.5 ACQUIRED ABSENCE OF KIDNEY Procedures There is no data. Results Test Result Range Thyroid Stimulating Hormone - 08/23/16 14:43 TSH 0.08 mIU/mL 0.32-5.00 Urinalysis - 08/31/16 13:45 Icotest N/A Negative Urine Volume Urine Volume Sufficient (10mL) Urine Yeast No Yeast present Urine-Appearance Clear Clear Urine-Bacteria Trace Urine-Bilirubin Negative Negative Urine-Blood Trace-intact Negative Urine-Color Yellow Colorless-Lt. Yellow Urine-Epithelial Cells 5-10/HPF Urine-Glucose Negative Negative Urine-Ketones Negative Negative Urine-Leukocytes Negative Negative Urine-Nitrite Negative Negative Urine-Other Culture to follow Urine-pH 7.0 5-8.5 Urine-Protein Negative Negative Urine-RBC 2-5/HPF Urine-Specific [place] 1.015 1.000-1.030 Urine-WBC 0-2/HPF Urobilinogen 0.2 E.U./dL 0.2-1.0 Urine Culture - 08/31/16 13:45 PRELIM CULTURE RESULTS No Growth 24 hours FINAL CULTURE RESULTS <10,000 Gram Positive Mixed Jeanna Probable Skin Contaminant No Further Workup done MEDIA PLATED Setup at 17:48 on 08/31/2016 CULTURE SOURCE VOID Thyroid Stimulating Hormone - 11/17/16 08:20 TSH 1.61 mIU/mL 0.32-5.00 Creatinine - 02/13/17 11:30 Creat 0.60 mg/dL 0.50-1.50 eGFR 99 mL/min/1.73m2 >59 Automated blood complete blood count (hemogram) panel - 03/06/17 07:18 Blood leukocytes automated count (number/volume) 7.9 10*3/uL 4.3-11.0 Blood erythrocytes automated count (number/volume) 5.02 10*6/uL 4.35-5.85 Venous blood hemoglobin measurement (mass/volume) 14.7 g/dL 11.5-16.0 Blood hematocrit (volume fraction) 43 % 35-52 Automated erythrocyte mean corpuscular volume 86 [foz_us] 80-99 Automated erythrocyte mean corpuscular hemoglobin (mass per erythrocyte) 29 pg 25-34 Automated erythrocyte mean corpuscular hemoglobin concentration measurement ( mass/volume) 34 g/dL 32-36 Automated erythrocyte distribution width ratio 13.3 % 10.0-14.5 Automated blood platelet count (count/volume) 297 10*3/uL 130-400 Automated blood platelet mean volume measurement 9.6 [foz_us] 7.4-10.4 PT panel in platelet poor plasma by coagulation assay - 03/06/17 07:18 Prothrombin time (PT) in platelet poor plasma by coagulation assay 13.1 s 12.2-14.7 INR in platelet poor plasma or blood by coagulation assay 1.0 0.8-1.4 Activated partial thromboplastin time (aPTT) in platelet poor plasma bycoagulation assay - 03/06/17 07:18 Activated partial thromboplastin time (aPTT) in platelet poor plasma bycoagulation assay 28 s 24-35 Blood Urea Nitrogen - 04/09/17 08:21 BUN 6 mg/dL 5-25 Creatinine - 04/09/17 08:21 Creat 0.68 mg/dL 0.50-1.50 eGFR 86 mL/min/1.73m2 >59 BMP - 05/15/17 09:17 Anion Gap 15 6-14 BUN 9 mg/dL 5-25 Calcium 9.4 mg/dL 8.3-10.4 Chloride 90 mmol/L 95-114 CO2 26 mEq/L 22-33 Creat 0.76 mg/dL 0.50-1.50 eGFR 75 mL/min/1.73m2 >59 Glucose 93 mg/dL 70-110 Osmo 262 280-295 Potassium 4.1 mmol/L 3.5-5.3 Sodium 127 mmol/L 134-148 Free T4 - 05/22/17 09:13 Free T4 1.15 ng/dL 0.81-1.61 Thyroid Stimulating Hormone - 05/22/17 09:13 TSH 2.61 mIU/mL 0.32-5.00 Uric Acid - 06/14/17 09:34 Uric Acid 2.2 mg/dL 2.6-7.2 Urinalysis - 06/14/17 13:10 Icotest N/A Negative Urine Volume Urine Volume Insufficient (<10mL) May Affect Microscopic Exam Urine Yeast No Yeast present Urine-Appearance Slightly Cloudy Clear Urine-Bacteria 4+ Urine-Bilirubin Negative Negative Urine-Blood 2+ Negative Urine-Color Yellow Colorless-Lt. 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 / ID to Follow MEDIA PLATED Setup at 13:49 on 06/14/2017 CULTURE SOURCE void Sensi - 06/14/17 13:10 FINAL CULTURE RESULTS Klebsiella oxytoca (Isolate 1) Ampicillin/Sulbactam <=8/4 Ampicillin 16 Amoxicillin/K Clavulanate <=8/4 Ceftriaxone <=8 Ciprofloxacin <=1 Nitrofurantoin <=32 Gentamicin <=4 Levofloxacin <=2 Trimethoprim/ Sulfamethoxazole <=2/38 Tetracycline <=4 Amikacin <=16 Aztreonam <=8 Ceftazidime <=1 Ceftazidime/K Clavulanate <=0.25 Cephalothin <=8 Cefotaxime <=2 Cefotaxime/K Clavulanate <=0.5 Cefoxitin <=8 Cefazolin <=8 Cefepime <=8 Cefuroxime <=4 Ertapenem <=1 Imipenem <=4 Meropenem <=4 Piperacillin/Tazobactam <=16 Piperacillin <=16 Tigecycline <=2 Tobramycin <=4 Thyroid Stimulating Hormone - 09/15/17 09:05 TSH 3.26 mIU/mL 0.32-5.00 BMP - 09/26/17 08:20 Anion Gap 19 6-14 BUN 15 mg/dL 5-25 Calcium 9.2 mg/dL 8.3-10.4 Chloride 89 mmol/L 95-114 CO2 25 mEq/L 22-33 Creat 0.78 mg/dL 0.50-1.50 eGFR 73 mL/min/1.73m2 >59 Glucose 99 mg/dL 70-110 Osmo 270 280-295 Potassium 3.3 mmol/L 3.5-5.3 Sodium 130 mmol/L 134-148 Renin Activity and Aldosterone - 09/26/17 08:20 RENIN ACTIVITY, PLASMA 17.146 ng/mL/hr 0.167-5.380 ALDOSTERONE 10.8 ng/dL 0.0-30.0 Thyroid Stimulating Hormone - 03/06/18 11:16 TSH 2.21 mIU/mL 0.32-5.00 Lipid Panel - 06/26/18 10:58 C/HDL 3.0 3.7-6.7 Cholesterol 246 mg/dL 100-240 HDL 83 mg/dL 30-85 LDL-Calculated 139 mg/dL 0-100 Trig 122 mg/dL 35-160 VLDL 24 mg/dL 0-42 Thyroid Stimulating Hormone - 08/08/18 10:00 TSH 1.42 mIU/mL 0.32-5.00 Encounters ACCT No. Visit Date/Time Discharge Status Pt. Type Provider Facility Loc./Unit Complaint [id number] 09/04/2018 15:29:00 09/04/2018 23:59:00 DIS Outpatient Amber Ramon [id number] 08/08/2018 11:16:00 08/08/2018 23:59:00 DIS Outpatient Amber Ramon [id number] 07/02/2018 09:40:00 07/02/2018 23:59:00 DIS Outpatient Amber Ramon [id number] 06/26/2018 10:57:00 06/26/2018 23:59:00 DIS Outpatient Ramon, RowanBassem [id number] 03/06/2018 11:16:00 03/06/2018 23:59:00 DIS Outpatient Ramon, NewtonLety [id number] 05/18/2017 00:00:00 12/28/2017 11:00:00 DIS Outpatient [place]oh[place]allas [id number] 09/26/2017 10:06:00 09/26/2017 23:59:00 DIS Outpatient Ramon, NewtonLety [id number] 09/15/2017 09:04:00 09/15/2017 23:59:00 DIS Outpatient Ramon, NewtonLety [id number] 07/12/2017 08:55:00 07/12/2017 23:59:00 DIS Outpatient Ramon, NewtonLety [id number] 06/21/2017 10:22:00 06/21/2017 23:59:00 DIS Outpatient Ramon, NewtonLety [id number] 06/14/2017 09:19:00 06/14/2017 23:59:00 DIS Outpatient Ramon, NewtonLety [id number] 05/22/2017 09:08:00 05/22/2017 23:59:00 DIS Outpatient Ramon, RowanBassem [id number] 05/15/2017 09:12:00 05/15/2017 23:59:00 DIS Outpatient Ramon, NewtonLety [id number] 04/09/2017 08:05:00 04/09/2017 23:59:00 DIS Outpatient Ramon, RowanBassem [id number] 02/14/2017 07:59:00 02/14/2017 23:59:00 DIS Outpatient Raomn, RowanBassem [id number] 02/13/2017 13:40:00 02/13/2017 23:59:00 DIS Outpatient Ramon, RowanCassi [id number] 02/09/2017 08:47:00 02/09/2017 23:59:00 DIS Outpatient Ramon, RowanBassem [id number] 01/01/2017 09:06:00 02/07/2017 13:42:00 DIS Outpatient GUNNAR, ROXY [id number] 12/15/2016 09:41:00 12/15/2016 23:59:00 DIS Outpatient GUNNAR, ROXY [id number] 11/17/2016 11:28:00 11/17/2016 23:59:00 DIS Outpatient Amber Ramon [id number] 11/02/2016 18:44:00 11/02/2016 21:14:00 DIS Outpatient Sup[facility] [place] [id number] 08/31/2016 13:45:00 08/31/2016 23:59:00 DIS Outpatient Amber Ramon [id number] 08/23/2016 14:39:00 08/23/2016 23:59:00 DIS Outpatient Glenny Meeks [id number] 11/02/2016 20:23:23 Document Registration [id number] 10/03/2018 08:30:00 10/03/2018 09:20:00 DIS Outpatient KO WEBER MD [facility] PREOP YAG [id number] 09/23/2018 10:38:00 09/23/2018 23:59:59 CLS Outpatient SUE MÁRQUEZ MD [facility] ONC [id number] 12/10/2017 00:08:00 12/10/2017 23:59:59 CLS Preadmit SUE MÁRQUEZ MD [facility] ONC [id number] 09/10/2017 10:50:00 12/09/2017 00:01:00 DIS Outpatient SUE MÁRQUEZ MD [facility] ONC [id number] 08/28/2017 12:46:00 08/28/2017 23:59:59 CLS Outpatient SUE MÁRQUEZ MD [facility] RAD SCREENING [id number] 03/06/2017 06:56:00 03/06/2017 23:59:59 CLS Outpatient KEVEN ARCINIEGA MD [facility] RAD LT RENAL MASS [id number] 09/11/2016 10:34:00 09/11/2016 23:59:59 CLS Outpatient SUE MÁRQUEZ MD [facility] ONC [id number] 09/13/2015 10:42:00 09/13/2015 23:59:59 CLS Outpatient SUE MÁRQUEZ MD [facility] ONC [id number] 09/06/2015 09:46:00 09/06/2015 23:59:59 CLS Outpatient SUE MÁRQUEZ MD [facility] RAD SCREENING [id number] 09/15/2014 10:40:00 09/15/2014 23:59:59 CLS Outpatient SUE MÁRQUEZ MD [facility] ONC [id number] 03/31/2014 10:05:00 03/31/2014 23:59:59 CLS Outpatient SUE MÁRQUEZ MD [facility] ONC [id number] 09/30/2013 10:03:00 09/30/2013 23:59:59 CLS Outpatient SUE MÁRQUEZ MD [facility] ONC [id number] 09/15/2013 09:34:00 09/15/2013 23:59:59 CLS Outpatient SUE MÁRQUEZ MD [facility] RAD SCREENING [id number] 04/01/2013 10:28:00 04/01/2013 23:59:59 CLS Outpatient SUE MÁRQUEZ MD [facility] ONC [id number] 10/04/2018 08:50:00 ACT Outpatient KO WEBER MD [facility] SDC YAG [id number] 09/06/2015 09:45:00 Document Registration [id number] 09/02/2014 09:53:00 Document Registration [id number] 09/17/2012 08:57:00 Document Registration [id number] 08/28/2012 09:07:00 Document Registration [id number] 03/26/2012 08:33:00 Document Registration [id number] 03/19/2012 08:56:00 Document Registration [id number] 08/29/2011 14:24:00 Document Registration [id number] 08/29/2011 13:22:00 Document Registration [id number] 02/28/2011 13:42:00 Document Registration [id number] 09/13/2010 13:17:00 Document Registration [id number] 03/01/2010 09:13:00 Document Registration [id number] 02/22/2010 08:46:00 Document Registration [id number] 12/01/2009 08:46:00 Document Registration [id number] 06/07/2009 08:52:00 Document Registration [id number] 06/03/2009 08:45:00 Document Registration [id number] 01/20/2009 10:42:00 Document Registration [id number] 12/21/2008 09:55:00 Document Registration [id number] 11/16/2008 08:44:00 Document Registration [id number] 11/11/2008 08:59:00 Document Registration
== END 2018-10-04 09:55 | disposition home or self-care (01) ==
LOC: SDC 08:50
PROVIDERS: ATTEND Specialist
DX: H26.493 Other secondary cataract, bilateral (principal)

== ENCOUNTER 2019-02-27 09:43 | Outpatient (RCR) | payer MEDICARE, OTHER ==
[~2019-02-27 09:43] MED LIST changes: -ROSU20TA31 PO; +ROSU20TA32 PO
== END 2019-04-29 | disposition home or self-care (01) ==
LOC: ONC 09:43
PROVIDERS: ATTEND Internal Medicine Hematology & Oncology
DX: Z08 Encounter for follow-up examination after completed treatment for malignant neoplasm (principal); Z85.43 Personal history of malignant neoplasm of ovary; Z85.820 Personal history of malignant melanoma of skin; Z85.528 Personal history of other malignant neoplasm of kidney; I10 Essential (primary) hypertension; E03.9 Hypothyroidism, unspecified; E78.00 Pure hypercholesterolemia, unspecified; E87.1 Hypo-osmolality and hyponatremia; Z79.899 Other long term (current) drug therapy; Z90.5 Acquired absence of kidney
CPT/HCPCS: 99213

== ENCOUNTER → 2019-12-01 | Outpatient (CLI) | payer MEDICARE, OTHER ==
[~2019-12-01] MED LIST changes: -TRAZ-190 PO; +TRAZ-227 PO
[2019-12-01 13:18] LABS: BASOPHILS % (AUTO) 0 % (0-10); EOSINOPHILS # (AUTO) 0.1 10^3/uL (0.0-0.3); EOSINOPHILS % (AUTO) 1 % (0-10); HEMATOCRIT 40 % (35-52); HEMOGLOBIN 13.5 G/DL (11.5-16.0); LYMPHOCYTES # (AUTO) 1.3 X 10^3 (1.0-4.0); LYMPHOCYTES % (AUTO) 15 % (12-44); MEAN CORPUSCULAR HEMOGLOBIN 29 PG (25-34); MEAN CORPUSCULAR HGB CONC 34 G/DL (32-36); MEAN CORPUSCULAR VOLUME 88 FL (80-99); MEAN PLATELET VOLUME 8.9 FL (7.4-10.4); MONOCYTES # (AUTO) 0.6 X 10^3 (0.0-1.0); MONOCYTES % (AUTO) 7 % (0-12); NEUTROPHILS # (AUTO) 6.6 X 10^3 (1.8-7.8); NEUTROPHILS % (AUTO) 76 % (42-75); PLATELET COUNT 304 10^3/uL (130-400); RED CELL DISTRIBUTION WIDTH 13.4 % (10.0-14.5); WHITE BLOOD COUNT 8.6 10^3/uL (4.3-11.0)
[2019-12-01 13:40] LABS: ALANINE AMINOTRANSFERASE 22 U/L (0-55); ALBUMIN 4.4 GM/DL (3.2-4.5); ALKALINE PHOSPHATASE 105 U/L (40-136); BILIRUBIN,TOTAL 0.2 MG/DL (0.1-1.0); BUN/CREATININE RATIO 9; CALCIUM 8.9 MG/DL (8.5-10.1); CARBON DIOXIDE 24 MMOL/L (21-32); CHLORIDE 100 MMOL/L (98-107); CREATININE SERUM 0.77 MG/DL (0.60-1.30); GFR ESTIMATED > 60; GLUCOSE 78 MG/DL (70-105); POTASSIUM 3.9 MMOL/L (3.6-5.0); SODIUM 135 MMOL/L (135-145); TOTAL PROTEIN 7.4 GM/DL (6.4-8.2)
== END ==
LOC: EDSTATUS 04-30 13:09 → ONC 13:06
PROVIDERS: ATTEND Internal Medicine Hematology & Oncology
DX: C56.2 Malignant neoplasm of left ovary (principal); C43.62 Malignant melanoma of left upper limb, including shoulder; Z98.890 Other specified postprocedural states; E03.9 Hypothyroidism, unspecified; E78.00 Pure hypercholesterolemia, unspecified; I10 Essential (primary) hypertension; Z90.5 Acquired absence of kidney; Z90.710 Acquired absence of both cervix and uterus; Z79.899 Other long term (current) drug therapy; Z85.53 Personal history of malignant neoplasm of renal pelvis
CPT/HCPCS: 80053; 85025; 86304; G0463; 99213

== ENCOUNTER → 2020-11-29 | Outpatient (CLI) | payer MEDICARE, OTHER ==
[~2020-11-29] MED LIST changes: +ALPR.25T PO; -ALPR0.254 PO
[2020-11-29 13:46] LABS: BASOPHILS % (AUTO) 0 % (0-10); EOSINOPHILS # (AUTO) 0.1 10^3/uL (0.0-0.3); EOSINOPHILS % (AUTO) 1 % (0-10); HEMATOCRIT 42 % (35-52); HEMOGLOBIN 13.7 g/dL (11.5-16.0); LYMPHOCYTES # (AUTO) 1.4 10^3/uL (1.0-4.0); LYMPHOCYTES % (AUTO) 16 % (12-44); MEAN CORPUSCULAR HEMOGLOBIN 29 pg (25-34); MEAN CORPUSCULAR HGB CONC 33 g/dL (32-36); MEAN CORPUSCULAR VOLUME 89 fL (80-99); MEAN PLATELET VOLUME 9.2 fL (9.0-12.2); MONOCYTES # (AUTO) 0.6 10^3/uL (0.0-1.0); MONOCYTES % (AUTO) 6 % (0-12); NEUTROPHILS # (AUTO) 7.1 10^3/uL (1.8-7.8); NEUTROPHILS % (AUTO) 77 % (42-75); PLATELET COUNT 295 10^3/uL (130-400); WHITE BLOOD COUNT 9.3 10^3/uL (4.3-11.0)
[2020-11-29 14:10] LABS: ALANINE AMINOTRANSFERASE 19 U/L (0-55); ALBUMIN 4.4 GM/DL (3.2-4.5); ALKALINE PHOSPHATASE 100 U/L (40-136); BILIRUBIN,TOTAL 0.2 MG/DL (0.1-1.0); BUN/CREATININE RATIO 8; CALCIUM 9.2 MG/DL (8.5-10.1); CARBON DIOXIDE 25 MMOL/L (21-32); CHLORIDE 101 MMOL/L (98-107); CREATININE SERUM 0.78 MG/DL (0.60-1.30); GFR ESTIMATED > 60; GLUCOSE 100 MG/DL (70-105); POTASSIUM 3.7 MMOL/L (3.6-5.0); SODIUM 134 MMOL/L (135-145); TOTAL PROTEIN 7.4 GM/DL (6.4-8.2)
== END ==
LOC: ONC 13:26
PROVIDERS: ATTEND Internal Medicine Hematology & Oncology
DX: C64.2 Malignant neoplasm of left kidney, except renal pelvis (principal); C43.9 Malignant melanoma of skin, unspecified; I10 Essential (primary) hypertension; E78.00 Pure hypercholesterolemia, unspecified; E03.9 Hypothyroidism, unspecified; Z98.890 Other specified postprocedural states; Z90.5 Acquired absence of kidney; Z85.43 Personal history of malignant neoplasm of ovary
CPT/HCPCS: 80053; 85025; 86304; 99213

== ENCOUNTER 2021-12-07 10:26 | Outpatient (RCR) | payer MEDICARE, OTHER ==
[2021-12-02 09:34] LABS: BASOPHILS % (AUTO) 1 % (0-10); EOSINOPHILS # (AUTO) 0.2 10^3/uL (0.0-0.3); EOSINOPHILS % (AUTO) 2 % (0-10); HEMATOCRIT 42 % (35-52); HEMOGLOBIN 13.8 g/dL (11.5-16.0); LYMPHOCYTES # (AUTO) 1.2 10^3/uL (1.0-4.0); LYMPHOCYTES % (AUTO) 17 % (12-44); MEAN CORPUSCULAR HEMOGLOBIN 29 pg (25-34); MEAN CORPUSCULAR HGB CONC 33 g/dL (32-36); MEAN CORPUSCULAR VOLUME 88 fL (80-99); MEAN PLATELET VOLUME 9.2 fL (9.0-12.2); MONOCYTES # (AUTO) 0.5 10^3/uL (0.0-1.0); MONOCYTES % (AUTO) 7 % (0-12); NEUTROPHILS # (AUTO) 5.2 10^3/uL (1.8-7.8); NEUTROPHILS % (AUTO) 72 % (42-75); PLATELET COUNT 280 10^3/uL (130-400); WHITE BLOOD COUNT 7.1 10^3/uL (4.3-11.0)
[2021-12-02 10:00] LABS: ALBUMIN 4.5 GM/DL (3.2-4.5); BILIRUBIN,TOTAL 0.3 MG/DL (0.1-1.0); CREATININE SERUM 0.71 MG/DL (0.60-1.30); TOTAL PROTEIN 6.9 GM/DL (6.4-8.2)
[~2021-12-07 10:26] MED LIST changes: -CITA10TA7 PO; +CITA10TA9 PO; -VENL150C PO; +VENL150C3 PO
== END 2021-12-15 | disposition home or self-care (01) ==
LOC: ONC 10:26
PROVIDERS: ATTEND Internal Medicine Hematology & Oncology
DX: C64.2 Malignant neoplasm of left kidney, except renal pelvis (principal); I10 Essential (primary) hypertension; E78.00 Pure hypercholesterolemia, unspecified; E03.9 Hypothyroidism, unspecified; Z90.5 Acquired absence of kidney; Z85.820 Personal history of malignant melanoma of skin; Z85.43 Personal history of malignant neoplasm of ovary; Z98.890 Other specified postprocedural states
CPT/HCPCS: 36415; 80053; 85025; 86304; 99213

== ENCOUNTER 2022-12-06 09:17 | Outpatient (RCR) | payer MEDICARE, OTHER ==
[2022-12-01 10:22] LABS: BASOPHILS % (AUTO) 0 % (0-10); EOSINOPHILS # (AUTO) 0.1 10^3/uL (0.0-0.3); EOSINOPHILS % (AUTO) 2 % (0-10); HEMATOCRIT 40 % (35-52); HEMOGLOBIN 13.2 g/dL (11.5-16.0); LYMPHOCYTES # (AUTO) 1.2 10^3/uL (1.0-4.0); LYMPHOCYTES % (AUTO) 17 % (12-44); MEAN CORPUSCULAR HEMOGLOBIN 29 pg (25-34); MEAN CORPUSCULAR HGB CONC 33 g/dL (32-36); MEAN CORPUSCULAR VOLUME 87 fL (80-99); MEAN PLATELET VOLUME 9.4 fL (9.0-12.2); MONOCYTES # (AUTO) 0.5 10^3/uL (0.0-1.0); MONOCYTES % (AUTO) 7 % (0-12); NEUTROPHILS # (AUTO) 5.4 10^3/uL (1.8-7.8); NEUTROPHILS % (AUTO) 75 % (42-75); PLATELET COUNT 299 10^3/uL (130-400); WHITE BLOOD COUNT 7.2 10^3/uL (4.3-11.0)
[2022-12-01 10:31] LABS: ALBUMIN 4.2 GM/DL (3.2-4.5); POTASSIUM 3.8 MMOL/L (3.6-5.0)
[2022-12-01 10:32] LABS: CALCIUM 9.4 MG/DL (8.5-10.1)
[2022-12-01 10:33] LABS: TOTAL PROTEIN 6.9 GM/DL (6.4-8.2)
[2022-12-01 10:35] LABS: BILIRUBIN,TOTAL 0.3 MG/DL (0.1-1.0)
[2022-12-01 10:37] LABS: CREATININE SERUM 0.77 MG/DL (0.60-1.30)
== END 2022-12-15 | disposition home or self-care (01) ==
LOC: ONC 09:17
PROVIDERS: ATTEND Internal Medicine Hematology & Oncology
DX: C64.2 Malignant neoplasm of left kidney, except renal pelvis (principal); C43.9 Malignant melanoma of skin, unspecified; C56.9 Malignant neoplasm of unspecified ovary; I10 Essential (primary) hypertension; E78.00 Pure hypercholesterolemia, unspecified; E03.9 Hypothyroidism, unspecified; Z90.5 Acquired absence of kidney; Z98.890 Other specified postprocedural states; Z72.0 Tobacco use
CPT/HCPCS: 36415; 80053; 85025; 86304